=== PATIENT | male | born 1940 | race Caucasian/White ===

== ENCOUNTER → 2019-12-22 10:23 | Outpatient (BNVA) | payer MEDICARE, SELFPAY | PROVIDERS: PCP Internal Medicine; Visit Provider Internal Medicine | DX: I48.20 Chronic atrial fibrillation, unspecified (principal); Z51.81 Encounter for therapeutic drug level monitoring; Z79.01 Long term (current) use of anticoagulants | CPT/HCPCS: 85610 ==

== ENCOUNTER → 2020-01-19 09:47 | Outpatient (BNVA) | payer MEDICARE, SELFPAY | PROVIDERS: PCP Internal Medicine; Visit Provider Internal Medicine | DX: I48.20 Chronic atrial fibrillation, unspecified (principal); Z51.81 Encounter for therapeutic drug level monitoring; Z79.01 Long term (current) use of anticoagulants | CPT/HCPCS: 85610; 99211 ==

== ENCOUNTER → 2020-03-02 10:04 | Outpatient (BNVA) | payer MEDICARE, SELFPAY | PROVIDERS: PCP Internal Medicine; Visit Provider Internal Medicine | DX: I48.20 Chronic atrial fibrillation, unspecified (principal); Z51.81 Encounter for therapeutic drug level monitoring; Z79.01 Long term (current) use of anticoagulants | CPT/HCPCS: 85610; 99211 ==

== ENCOUNTER → 2020-03-30 09:44 | Outpatient (BNVA) | payer MEDICARE, SELFPAY | PROVIDERS: PCP Internal Medicine; Visit Provider Internal Medicine | DX: I48.20 Chronic atrial fibrillation, unspecified (principal); Z51.81 Encounter for therapeutic drug level monitoring; Z79.01 Long term (current) use of anticoagulants | CPT/HCPCS: 85610; 99211 ==

== ENCOUNTER → 2020-04-22 13:48 | Outpatient (REF) | payer MEDICARE, SELFPAY ==
--- NOTE | 2020-04-22 13:52 | CA_ITS ---
Transthoracic Echocardiogram Patient (Last, First, Middle): Cachorro Azar F Gender: Male Date of : 1940 Age: 80 Procedure Date: 04/22/2020 Procedure Type: Transthoracic Echocardiogram Location: OP Height: 180.34 cm Weight: 97.07 kg BSA: 2.17 m2 Heart Rate: bpm BP: 124 / 70 mmHg [employer] Supervisor: Referring MD: Charanjit Aguirre MD Symptoms: I48.20 - Chronic atrial fibrillation, R06.02 SOB Study Quality: Good ECG Rhythm: Atrial Fibrillation Conclusions: - Normal left ventricular size and systolic function. - There is a flattened septum in systole and diastole consistent with right ventricular pressure and volume overload. - Severely increased right ventricular cavity size. There is severely decreased right ventricular systolic function. - The left atrium is severely dilated. The right atrium is severely dilated. - There is mild dilatation of the ascending aorta. Findings Left Ventricle Normal left ventricular size and systolic function. There is mildly increased left ventricular wall thickness. The visually estimated ejection fraction is between 55-60%. There is no evidence of regional wall motion abnormalities. There is a flattened septum in systole and diastole consistent with right ventricular pressure and volume overload. Diastolic function is indeterminate on the basis of available data. Right Ventricle Severely increased right ventricular cavity size. There is severely decreased right ventricular systolic function. Atria The left atrium is severely dilated. The right atrium is severely dilated. Aortic Valve There is a normal trileaflet aortic valve. There is no aortic valve stenosis. There is no aortic valve regurgitation. Mitral Valve Normal mitral valve structure and function. There is mild mitral annular calcification. There is no mitral valve regurgitation. There is no mitral valve stenosis. Pulmonic Valve Normal pulmonic valve structure and function. There is trace pulmonic valve regurgitation. Tricuspid Valve There is severe tricuspid valve regurgitation. Significantly elevated right atrial pressure. Mild pulmonary hypertension is present. Great Vessels There is mild dilatation of the ascending aorta. The visualized portions of the pulmonary artery and branches are normal. Venous The inferior vena cava is dilated and does not collapse with inspiration. Pericardium/Pleural There is no evidence of pericardial effusion. Prior Study Comparison Significant changes compared to prior study dated: 05/06/2018. Severe RV dilation and dysfunction. Severe TR present. Measurements 2D Linear Measurements IVSd: 1.29 0.6-0.9/0.6-1.0 cm LVIDd: 5.05 3.9-5.3/4.2-5.9 cm LVIDd Index: 2.33 2.4-3.2/2.2-3.1 cm/m2 LVIDs: 3.36 2.0-3.6 cm LVPWd: 1.30 0.7-1.1 cm Ao Root: 3.60 2.1-3.5 cm LA Diam: 5.90 2.7-3.8/3.0-4.0 cm LAIDs Index: 2.72 1.5-2.3 cm/m2 LV Mass: 329.84 67-162/88-224 g LV Mass Index: 152.00 43-95/49-115 g/m2 LVOT Diam: 2.20 3.0+(-)1.3 cm Mitral Valve MV Pk E: 1.25 MV Decel Time: 190.00 E'Lateral: 17.30 E'Medial: 14.60 E/E' Med: 8.60 E/E' Lat: 7.20 PHT: 56.00 MVA PHT: 3.93 Decel [place]: 6.56 Aortic Valve AoV Pk Rudi: 1.89 AoV Mn Rudi: 1.07 AoV VTI: 0.44 AoV Pk Grad: 14.00 Aov Mn Grad: 6.00 GERALDO Cont.VTI: 1.97 LVOT LVOT Pk Rudi: 1.06 LVOT Mn Rudi: 0.67 LVOT VTI: 0.23 LVOT Pk Grad: 4.00 LVOT Mn Grad: 2.00 LVOT Diam: 2.20 LVOT Area: 3.80 Diastolic Function MV Pk E: 1.25 E'Medial: 14.60 E/E' Med: 8.60 E' Laterial: 17.30 E/E' Lat: 7.20 Tricuspid Valve TR Pk Rudi: 2.47 TR Pk Grad: 24.00 RVSP: 45.00 Great Vessels Aorta Ao Root-2D: 3.60 2.0-3.7 cm Ao Asc: 4.10 2.1-3.4 cm Pulmonary Valve PV Pk Rudi: 1.11 Peak PV Grad: 5.00 Updated in Other Vendor System with Status of Final [place] MD electronically signed on 04/23/2020 7:14:07 PM with status of Final
== END ==
LOC: HO.CARD 13:48
PROVIDERS: PCP Internal Medicine; Visit Provider Internal Medicine Cardiovascular Disease
DX: I48.20 Chronic atrial fibrillation, unspecified (principal); R06.02 Shortness of breath
CPT/HCPCS: 93306

== ENCOUNTER → 2020-04-28 10:25 | Outpatient (BNVA) | payer MEDICARE, SELFPAY | PROVIDERS: PCP Internal Medicine; Visit Provider Internal Medicine | DX: I48.20 Chronic atrial fibrillation, unspecified (principal); Z51.81 Encounter for therapeutic drug level monitoring; Z79.01 Long term (current) use of anticoagulants | CPT/HCPCS: 85610; 99211 ==

== ENCOUNTER → 2020-05-09 10:14 | Outpatient (BNVA) | payer MEDICARE, SELFPAY | PROVIDERS: PCP Internal Medicine; Visit Provider Internal Medicine Cardiovascular Disease | DX: I48.20 Chronic atrial fibrillation, unspecified (principal); I50.810 Right heart failure, unspecified; I25.10 Atherosclerotic heart disease of native coronary artery without angina pectoris; Z79.01 Long term (current) use of anticoagulants; Z87.891 Personal history of nicotine dependence | CPT/HCPCS: 99212 ==

== ENCOUNTER → 2020-05-31 10:18 | Outpatient (BNVA) | payer MEDICARE, SELFPAY | PROVIDERS: PCP Internal Medicine; Visit Provider Internal Medicine | DX: I48.20 Chronic atrial fibrillation, unspecified (principal); Z51.81 Encounter for therapeutic drug level monitoring; Z79.01 Long term (current) use of anticoagulants | CPT/HCPCS: 85610; 99211 ==

== ENCOUNTER → 2020-06-27 13:23 | Outpatient (BNVA) | payer MEDICARE, SELFPAY | PROVIDERS: PCP Internal Medicine; Visit Provider Internal Medicine Cardiovascular Disease | DX: I50.810 Right heart failure, unspecified (principal); I48.20 Chronic atrial fibrillation, unspecified; I07.1 Rheumatic tricuspid insufficiency | CPT/HCPCS: 99212 ==

== ENCOUNTER → 2020-06-28 10:02 | Outpatient (BNVA) | payer MEDICARE, SELFPAY | PROVIDERS: PCP Internal Medicine; Visit Provider Internal Medicine | DX: I48.20 Chronic atrial fibrillation, unspecified (principal); Z51.81 Encounter for therapeutic drug level monitoring; Z79.01 Long term (current) use of anticoagulants | CPT/HCPCS: 85610; 99211 ==

== ENCOUNTER → 2020-08-02 13:40 | Outpatient (BNVA) | payer MEDICARE, SELFPAY | PROVIDERS: PCP Internal Medicine; Visit Provider Internal Medicine | DX: I48.20 Chronic atrial fibrillation, unspecified (principal); Z51.81 Encounter for therapeutic drug level monitoring; Z79.01 Long term (current) use of anticoagulants | CPT/HCPCS: 85610; 99211 ==

== ENCOUNTER 2020-08-08 13:11 | Outpatient (REF) | payer MEDICARE, SELFPAY ==
[2020-08-08 17:09] LABS: Anion Gap 12 (12-20); Blood Urea Nitrogen 36 mg/dL (9-16); Calcium 9.6 mg/dL (8.4-10.2); Carbon Dioxide 31 mmol/L (22-29); Chloride 104 mmol/L (96-108); Estimated Glomerular Filt Rate 54; Glucose Random 88 mg/dL (60-115); Potassium 4.3 mmol/L (3.3-5.1); Sodium 143 mmol/L (135-145)
[2020-08-08 17:15] LABS: B Type Natriuretic Peptide 65 pg/mL (<100)
[2020-08-08 17:25] LABS: Digoxin 0.3 ng/mL (0.8-2.0)
== END 2020-08-08 13:12 | disposition home or self-care (01) ==
LOC: HO.LAB 13:11
PROVIDERS: Absent Provider Internal Medicine Cardiovascular Disease; PCP Internal Medicine; Visit Provider Internal Medicine
DX: I50.810 Right heart failure, unspecified (principal); I48.20 Chronic atrial fibrillation, unspecified; I25.10 Atherosclerotic heart disease of native coronary artery without angina pectoris; Z79.01 Long term (current) use of anticoagulants; Z79.899 Other long term (current) drug therapy
CPT/HCPCS: 36415; 80048; 80162; 83880; 85610; 99211; 99212

== ENCOUNTER → 2020-08-22 10:17 | Outpatient (BNVA) | payer MEDICARE, SELFPAY | PROVIDERS: PCP Internal Medicine; Visit Provider Internal Medicine | DX: I48.20 Chronic atrial fibrillation, unspecified (principal); Z51.81 Encounter for therapeutic drug level monitoring; Z79.01 Long term (current) use of anticoagulants | CPT/HCPCS: 85610; 99211 ==

== ENCOUNTER 2020-10-28 11:10 | Inpatient (IN) | payer MEDICARE, SELFPAY ==
[2020-10-28] VITALS (15 sets, daily range): BP systolic 92–147; BP diastolic 45–89; PULSE 71–83; RESP 14–20; TEMP 36.3–37.3; O2SAT 95–99; BMI 29.7; BMI 30.3
--- NOTE | ~2020-10-28 | XR_ITS ---
EXAMINATION: XR CHEST CLINICAL INFORMATION: Fluid overload COMPARISON: May 19, 2019 TECHNIQUE: AP portable view of the chest was obtained. FINDINGS: The cardiopericardial silhouette is enlarged. No evidence of pulmonary edema. No pneumothorax or pleural effusion. Status post median sternotomy and CABG. Leads for spinal stimulator seen in place. XR/XR chest 1V IMPRESSION: Cardiomegaly without pulmonary edema.
--- NOTE | ~2020-10-28 | CT_ITS ---
EXAMINATION: CT ABDOMEN AND PELVIS WITHOUT CONTRAST CLINICAL INFORMATION: Anemia. Swelling. Question GI bleed. COMPARISON: CTA of the chest December 2016 TECHNIQUE: Multidetector volumetric imaging was performed from the superior aspect of the liver through the pubic symphysis. Sagittal and coronal reformatted images were obtained on the technologist's workstation. This CT examination was performed using dose optimization techniques as appropriate, variously including the following: *Automated exposure control *Adjustment of mA and/or kV according to patient size (this includes techniques or standardized protocols for targeted exams where dose is matched to indication/reason for exam; i.e. extremities or head) *Use of iterative reconstruction technique DLP: 786 mGy-cm FINDINGS: LUNG BASES: There is a 6 x 7 mm semisolid left lower lobe nodule axial image 13 series 3. This may be increased in size from 3 mm on December 2016 chest scan. The heart is enlarged. LIVER, GALLBLADDER, AND BILIARY TREE: The hepatic veins and intrahepatic IVC are prominent questionable for evidence of right heart compromise. The contour of the liver is slightly irregular and there is prominence of the left lobe and caudate lobe questionable for mild cirrhotic change. The liver is otherwise unremarkable. The gallbladder has been removed. There is no biliary duct dilatation. PANCREAS: Unremarkable. SPLEEN: Unremarkable. ADRENAL GLANDS: Unremarkable. KIDNEYS AND URETERS: There are bilateral low-attenuation renal lesions suggestive of cysts. Largest measures 2.3 x 3 cm exophytic to the lateral lower pole of the right kidney. There is a small right renal stone. BLADDER: The prostate gland is slightly enlarged and protrudes into the base of the bladder. The bladder is otherwise unremarkable. GASTROINTESTINAL TRACT: There is stool throughout the colon. There is diverticulosis of the colon. No evidence of diverticulitis is seen. There is question of a wall thickening of the duodenum. Small and large bowel are otherwise unremarkable. The appendix is unremarkable. ABDOMINAL WALL: There is a small left inguinal hernia containing fat. LYMPH NODES: There are small retroperitoneal lymph nodes. No enlarged lymph nodes are seen. VASCULAR: There is evidence of atherosclerotic disease. No aneurysm is seen. PELVIC VISCERA: The prostate gland is slightly enlarged and protrudes into the base of the bladder. Prostate gland measures 4 x 5 cm. OSSEOUS STRUCTURES: There are degenerative changes of the spine. There is mild 2 mm anterior subluxation of L4 or with respect L5. There are the the spinal canal. The top of the leads are at the T8 vertebral body level. There is a battery in the left buttock. There is a left hip replacement. There are degenerative changes of the right hip joint. CT/CT abdomen pelvis wo con IMPRESSION: Diverticulosis. Stool throughout the colon suggestive of constipation. Question wall thickening of the duodenum. Bilateral renal cysts. Small right renal stone. Enlarged heart. Question evidence of right heart compromise the cirrhotic changes of the liver. 6 x 7 mm left lower lobe groundglass nodule. Chest follow-up recommended.
--- NOTE | ~2020-10-28 | US_ITS ---
EXAMINATION: US VENOUS ULTRASOUND WITH DOPPLER LOWER EXTREMITY, BILATERAL CLINICAL INFORMATION: Bilateral lower extremity swelling. Assess for DVT. COMPARISON: None TECHNIQUE: Ultrasound of the deep veins is performed from the hip to the calf with compression sonography and color and pulse Doppler assessment. Spectral analysis with color-flow imaging is performed. FINDINGS: RIGHT: There is normal venous compression and respiratory variation and augmented flow. The visualized common femoral vein, superficial femoral vein, profunda femoral vein, popliteal vein, and the trifurcation region shows no evidence of deep venous thrombosis. No popliteal fossa cyst. LEFT: There is normal venous compression and respiratory variation and augmented flow. The visualized common femoral vein, superficial femoral vein, profunda femoral vein, popliteal vein, and the trifurcation region shows no evidence of deep venous thrombosis. No popliteal fossa cyst. US/US venous duplex LE BI IMPRESSION: No DVT demonstrated in the bilateral lower extremity.
--- NOTE | 2020-10-28 11:48 | ECG_ITS ---
Test Reason : WEAKNESS Blood Pressure : / mmHG Vent. Rate : 077 BPM Atrial Rate : 078 BPM P-R Int : 000 ms QRS Dur : 106 ms QT Int : 406 ms P-R-T Axes : 000 022 171 degrees QTc Int : 459 ms Atrial fibrillation with premature ventricular or aberrantly conducted complexes Incomplete left bundle branch block ST & T wave abnormality, consider inferolateral ischemia Abnormal ECG When compared with ECG of 19-MAY-2019 11:54, Incomplete left bundle branch block is now Present ST now depressed in Anterolateral leads T wave inversion now evident in Lateral leads Referred By: Mesfin Almeida Electronically Signed By:VIN RILEY
--- NOTE | 2020-10-28 11:53 | ED_ITS ---
HPI - General Adult General Chief complaint: Weakness Stated complaint: weight gain Time Seen by Provider: 10/28/20 11:14 Source: patient Mode of arrival: ambulatory Limitations: no limitations History of Present Illness HPI narrative: Patient presents to ED for weight gain. Patient states increased swelling in bilateral legs and also swelling of the abdomen. Patient's history of heart failure. Patient denies any chest pain, shortness of breath, or abdominal pain. Patient states no fever or chills. Patient already on diuretics. Patient states gain a lb since yesterday. Patient states status post left hip surgery 3 weeks ago. Patient also states weakness Related Data Home Medications Medication Instructions Recorded Confirmed digoxin 125 mcg (0.125 mg) tablet 125 mcg PO BEDTIME 04/28/20 10/28/20 acetaminophen 500 mg tablet 500 mg PO Q8H PRN 10/28/20 10/28/20 cephalexin 500 mg capsule 1 cap PO Q8H 10/28/20 10/28/20 fentanyl 50 mcg/hr transdermal 1 patch TOPICAL Q3D 10/28/20 10/28/20 patch oxycodone 5 mg tablet 5 mg PO Q4H PRN 10/28/20 10/28/20 pregabalin 25 mg capsule 1 cap PO TID 10/28/20 10/28/20 tamsulosin 0.4 mg capsule 1 cap PO BEDTIME 10/28/20 10/28/20 warfarin 1 mg tablet 1 tab PO DAILY 10/28/20 10/28/20 Previous Rx's Medication Instructions Recorded warfarin 5 mg tablet 5 mg PO DAILY #90 tab 12/22/19 isosorbide mononitrate 30 mg 30 mg PO DAILY 90 Days #90 tab 03/03/20 tablet,extended release 24 hr metoprolol succinate 25 mg 25 mg PO DAILY #90 tab 05/30/20 tablet,extended release 24 hr torsemide 20 mg tablet 60 mg PO BID 90 Days #540 tab 07/20/20 metolazone 2.5 mg tablet 2.5 mg PO Q OTHER DAY PRN #20 tab 08/08/20 Allergies Allergy/AdvReac Type Severity Reaction Status Date / Time gabapentin [GABAPENTIN] Allergy Unknown UNKNOWN, Verified 08/08/20 13:35 heart palipitations [place]-Sso-Nqm Reductase Allergy Unknown MUSCLE Verified 08/08/20 13:35 Inhibitor /JOINT PAIN [[id number] REDUCTASE INHIBITOR] Review of Systems Review of Systems: Yes all other systems are reviewed and are negative Constitutional: Constitutional: Reports as per HPI and Reports no additional constitutional complaints Eyes: Eyes: Reports as per HPI and Reports no additional eye complaints ENT: Reports system reviewed and no additional complaints, except as documented and Reports as per HPI Cardiovascular: Cardiovascular: Reports as per HPI and Reports no additional cardiovascular complaints Respiratory: Respiratory: Reports as per HPI and Reports no additional respir atory complaints Gastrointestinal: Gastrointestinal: Reports as per HPI and Reports no additional gastrointestinal complaints Comments: Abdominal swelling Musculoskeletal: Musculoskeletal: Reports no additional musculoskeletal complaints and Reports as per HPI Comments: Increased swelling of bilateral l ower extremities. Neurologic: Reports system reviewed and no additional complaints, except as documented and Reports as per HPI Psychiatric: Psychiatric: Reports no additional psychiatric complaints and R eports as per HPI Endocrine: Endocrine: Reports no additional endocrine complaints and Reports as per HPI [facility] Past Medical History Medical History CAD (coronary artery disease) Chronic a-fib Congestive heart failure Enlarged RV (right ventricle) RVF (right ventricular failure) Thoracic aortic aneurysm Tricuspid regurgitation Surgical History History of radiofrequency ablation (RFA) procedure for cardiac arrhythmia History of total hip arthroplasty Hx of cardiac cath Hx of heart bypass surgery Family History Family History Father CVD (cardiovascular disease) Mother CVD (cardiovascular disease) Social History Social History Advance Directives: No Advance Directives Information Provided: Yes Physical Exam Vital Signs: Vital Signs: Last Vital Signs Temp 98.0 F 10/28/20 16:00 Pulse 80 10/28/20 16:00 Resp 20 10/28/20 16:00 BP 130/68 10/28/20 16:00 Pulse Ox 98 10/28/20 16:00 Body Mass Index 29.7 Const: General: cooperative, healthy appearing, comfortable, no acute distress, well developed, alert, awake and Physically active; No acute distress Orientation/consciousness: patient oriented x3 HENMT: Head: Yes normal to inspection, Yes No palpable skull fracture present, Yes normocephalic, Yes atraumatic and No abrasion Eyes: General: appearance normal, both eyes and all related structures Neck: Neck: Yes normal visual inspection, Yes full ROM, Yes no lymphadenopathy, Yes no meningeal signs, Yes trachea midline, Yes supple and No tender Resp: Effort & Inspection: normal respiratory effort and able to speak in complete sentences Auscultation: clear to auscultation bilaterally Cardio: Jugular venous distension: no JVD Heart sounds: S1 normal heart sound present and S2 normal heart sound present GI: Inspection: Yes normal to inspection, No abdominal wall ecchymosis and Yes distended Palpation (GI): Soft to palpation, not firm, nontender, no guarding and not rigid : General: Yes Bimanual renal exam normal bilaterally, No bladder normal to inspection, No CVA tenderness and Yes no CVA tenderness Back/Spine/Pelvis: Back: no CVA tenderness, No CVA tenderness and No back tenderness Skin: General skin exam: no rashes or lesions noted and elasticity normal Neuro: General: patient oriented x3, gait normal, no meningeal signs and CN's II-XI intact bilaterally Cranial nerves: Yes CN's II-XII intact bilaterally Extrem: Other: Bilateral lower extremity swelling with pitting edema. Negative for any calf tenderness. Left hip incision wound healing and negative for any erythema, pus discharge, foul odor, or tenderness. Psych: Appearance: grossly normal, well kempt and not disheveled Course Course Course Narrative: History physical exam indicate anasarca. Patient not having any chest pain or shortness of breath will do cardiac evaluation including BMP and chest x-ray with EKG. Probably patient will have imaging of abdomen. Reevaluation(s) Reevaluation #1: Patient is anemic. Patient complains of fatigue. Rectal exam done and occult stool ordered. Type and screen ordered. Discussed case with hospitalist and recommend abdominal CT scan to see if the swelling due to pooling of blood. Two bags of blood ordered. Patient agreeable to consent for blood. Patient received blood transfusion in the past. Patient states history of multiple episodes of anemia and has had multiple evaluations by medical providers but did not know why. Time: 12:42 Reevaluation #2: CT scan of CS abdomen with IV contrast could not be done due to patient having acute kidney injury with hypokalemia. Patient will have dry CT. Protonix ordered. Spoke with Dr. Colon of Gastroenterology and she agrees with plan for patient to receive blood and Protonix. She states she will schedule patient for EGD in the morning. She has also agree with plan for Dr. Mendoza to have patient received vitamin K and FFP with INR of 2.5 with bleeding. Time: 13:55 Medical Decision Making MDM Narrative Medical decision making narrative: Symptomatic anemia. Rule out GI bleed. Anasarca Lab Data Result diagrams: 10/28/20 12:09 10/28/20 12:09 Labs: Lab Results 10/28/20 10/28/20 10/28/20 Range/Units 12:09 12:09 12:09 WBC 7.6 (4.8-10.8) X10*3/uL RBC 2.35 L (4.60-5.80) X10*6/uL Hgb 6.0 L* (14.0-18.0) g/dl Hct 19.5 L* (42-52) % MCV 83.0 (80-98) fL MCH 25.5 L (27.0-33.0) pg MCHC 30.8 L (31.0-36.0) g/dl RDW 15.7 (11.0-16.0) % Plt Count 198 (160-400) X10*3/uL MPV 10.2 (9.4-12.4) fL Immature Gran % (Auto) 1.0 H (0.0-0.4) % Neut % (Auto) 66.3 (45-73) % Lymph % (Auto) 9.7 L (20-40) % [place] % (Auto) 12.7 H (2-11) % Eos % (Auto) 10.2 H (0-4) % Baso % (Auto) 0.1 (0-2) % Lymph # (Auto) 0.7 L (1.2-4.9) X10*3/uL [place] # (Auto) 1.0 (0.1-1.2) X10*3/uL Eos # (Auto) 0.8 H (0.0-0.4) X10*3/uL Baso # (Auto) 0.0 (0.0-0.2) X10*3/uL Abs Immat Gran (auto) 0.08 H (0.00-0.03) X10*3/uL Absolute Neuts (auto) 5.1 (2.0-8.3) X10*3/uL Absolute Nucleated RBC 0.000 (0.0-0.012) X10*3/uL Nucleated RBC % (auto) 0.0 (0.0-0.2) /100WBC Smear Path Review SEE NOTE PT 28.6 H (9.9-13.0) SEC INR 2.5 H (0.9-1.1) APTT 37.2 (24.1-38.0) SEC Sodium 133 L (135-145) mmol/L Potassium 2.5 L* D (3.3-5.1) mmol/L Chloride 87 L (96-108) mmol/L Carbon Dioxide 34 H (22-29) mmol/L Anion Gap 15 (12-20) BUN 108 H* D (9-16) mg/dL Creatinine 3.03 H (0.5-1.4) mg/dL Estim Creat Clear Calc 24.5 Estimated GFR 20 Random Glucose 172 H D (60-115) mg/dL Calcium 8.4 D (8.4-10.2) mg/dL Total Bilirubin 0.5 (0.0-1.0) mg/dL Direct Bilirubin 0.2 (0.0-0.5) mg/dL AST 24 (5-37) U/L ALT 17 (0-40) U/L Alkaline Phosphatase 74 (39-117) U/L Troponin I High Sens (<3.5-35.0) ng/L B-Natriuretic Peptide (<100) pg/mL Total Protein 5.5 L (6.5-8.0) g/dL Albumin 3.7 (3.5-5.0) g/dL Stool Occult Blood (NEGATIVE) Blood Type Antibody Screen Crossmatch 10/28/20 10/28/20 10/28/20 Range/Units 12:09 12:40 12:50 WBC (4.8-10.8) X10*3/uL RBC (4.60-5.80) X10*6/uL Hgb (14.0-18.0) g/dl Hct (42-52) % MCV (80-98) fL MCH (27.0-33.0) pg MCHC (31.0-36.0) g/dl RDW (11.0-16.0) % Plt Count (160-400) X10*3/uL MPV (9.4-12.4) fL Immature Gran % (Auto) (0.0-0.4) % Neut % (Auto) (45-73) % Lymph % (Auto) (20-40) % [place] % (Auto) (2-11) % Eos % (Auto) (0-4) % Baso % (Auto) (0-2) % Lymph # (Auto) (1.2-4.9) X10*3/uL [place] # (Auto) (0.1-1.2) X10*3/uL Eos # (Auto) (0.0-0.4) X10*3/uL Baso # (Auto) (0.0-0.2) X10*3/uL Abs Immat Gran (auto) (0.00-0.03) X10*3/uL Absolute Neuts (auto) (2.0-8.3) X10*3/uL Absolute Nucleated RBC (0.0-0.012) X10*3/uL Nucleated RBC % (auto) (0.0-0.2) /100WBC Smear Path Review PT (9.9-13.0) SEC INR (0.9-1.1) APTT (24.1-38.0) SEC Sodium (135-145) mmol/L Potassium (3.3-5.1) mmol/L Chloride (96-108) mmol/L Carbon Dioxide (22-29) mmol/L Anion Gap (12-20) BUN (9-16) mg/dL Creatinine (0.5-1.4) mg/dL Estim Creat Clear Calc Estimated GFR Random Glucose (60-115) mg/dL Calcium (8.4-10.2) mg/dL Total Bilirubin (0.0-1.0) mg/dL Direct Bilirubin (0.0-0.5) mg/dL AST (5-37) U/L ALT (0-40) U/L Alkaline Phosphatase (39-117) U/L Troponin I High Sens 13.4 (<3.5-35.0) ng/L B-Natriuretic Peptide 91 (<100) pg/mL Total Protein (6.5-8.0) g/dL Albumin (3.5-5.0) g/dL Stool Occult Blood POSITIVE (NEGATIVE) Blood Type A Positive Antibody Screen NEGATIVE Crossmatch See Detail ECG Data Interpretation: Atrial fibrillation. Ventricular rate 77. QRS 106. QTC 459. Negative STEMI Discharge Plan Discharge Clinical Impression: Symptomatic anemia, Anasarca Patient Disposition: Admitted As Inpatient
[2020-10-28 12:16] LABS: MANUAL DIFF FLAG NO
[2020-10-28 12:18] LABS: Basophils Percent Auto 0.1 % (0-2); Eosinophils Absolute Auto 0.8 X10*3/uL (0.0-0.4); Eosinophils Percent Auto 10.2 % (0-4); Imm Gran Abs Auto 0.08 X10*3/uL (0.00-0.03); Lymphocytes Absolute Auto 0.7 X10*3/uL (1.2-4.9); Lymphocytes Percent Auto 9.7 % (20-40); Mean Corpuscular HGB Conc 30.8 g/dl (31.0-36.0); Mean Corpuscular Hemoglobin 25.5 pg (27.0-33.0); Mean Platelet Volume 10.2 fL (9.4-12.4); Monocytes Percent Auto 12.7 % (2-11); Neutrophils Absolute Auto 5.1 X10*3/uL (2.0-8.3); Neutrophils Percent Auto 66.3 % (45-73); Platelet Count 198 X10*3/uL (160-400); Red Blood Count 2.35 X10*6/uL (4.60-5.80); Red Cell Distribution Width 15.7 % (11.0-16.0); White Blood Count 7.6 X10*3/uL (4.8-10.8)
[2020-10-28 12:27] LABS: Hematocrit 19.5 % (42-52); INTERNATIONAL NORM RATIO 2.5 (0.9-1.1); Prothrombin Time 28.6 SEC (9.9-13.0)
[2020-10-28 12:30] LABS: Partial Thromboplastin Time 37.2 SEC (24.1-38.0)
[2020-10-28 12:43] LABS: B Type Natriuretic Peptide 91 pg/mL (<100); Troponin-I High Sensitivity 13.4 ng/L (<3.5-35.0)
[2020-10-28 12:51] LABS: OBS Int Ctl Valid YES; OBS1 POSITIVE (NEGATIVE)
[2020-10-28 12:58] LABS: Alanine Aminotransferase 17 U/L (0-40); Albumin Level 3.7 g/dL (3.5-5.0); Alkaline Phosphatase 74 U/L (39-117); Anion Gap 15 (12-20); Aspartate Amino Transferase 24 U/L (5-37); Bilirubin Direct 0.2 mg/dL (0.0-0.5); Bilirubin Total 0.5 mg/dL (0.0-1.0); Blood Urea Nitrogen 108 mg/dL (9-16); Calcium 8.4 mg/dL (8.4-10.2); Carbon Dioxide 34 mmol/L (22-29); Chloride 87 mmol/L (96-108); Creatinine Clr Calc Pharmacy 24.5; Estimated Glomerular Filt Rate 20; Glucose Random 172 mg/dL (60-115); Potassium 2.5 mmol/L (3.3-5.1); Sodium 133 mmol/L (135-145); Total Protein 5.5 g/dL (6.5-8.0)
--- NOTE | 2020-10-28 13:53 | PM.GICN ---
History of Present Illness Data of Consult Service Date: 10/28/20 Primary Care Provider: Charanjit Aguirre MD HPI Reason for consult: Gi Bleeding, severe anemia 80 YM with AFib on warfarin, right ventricular failure with tricuspid regurgitation and thoracic aortic aneurysm, CAD?presented to [facility] today with weight gain He has been diagnosed with lung cancer and is undergoing immunotherapy at [facility]: HPI narrative: Patient presents to ED for weight gain.? Patient states increased swelling in bilateral legs and also swelling of the abdomen.? Patient's history of heart failure.? Patient denies any chest pain, shortness of breath, or abdominal pain.? Patient states no fever or chills.? Patient already on diuretics.? Patient states gain a lb since yesterday.? Patient states status post left hip surgery 3 weeks ago. Patient denies symptoms of heartburn, nausea, vomiting, change in appetite, diarrhea, black stools or rectal bleeding. He complains of intermittent dysphagia to solid food which resolves with drinking fluid and denies episodes of food impaction. Admits to weight gain due to edema. Pt denies recent change in bowel habits - has intermittent constipation. Patient admits to sleep apnea and uses a CPAP machine Denies problems with anesthesia in the past. Pt has been on oysterman anticoagulation with warfarin for chronic AF. 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 Patient denies known family history of colon cancer or other GI malignancies. A daughter had colon polyps and had surgery for Wilm's tumor PAST EGD/COLONOSCOPY: Patient gives a history of recurrent anemia every 2 yrs since the past 7-8 yrs and has been evaluated by multiple EGDs and Colonoscopies He had EGD, Colonoscopy and capsule endoscopy by Dr. Guerrero at [facility] 1.5 years ago - records have been requested Per pt EGD was normal, 9 polyps were removed during colonoscopy and he does not recall being informed about capsule endoscopy results. Repeat colonoscopy was advised in 1 year. ? a blood vessel was cauterized in the stomach during a past EGD Review of Systems Constitutional: Constitutional: Denies fever(s), Denies headache(s), Reports weakness and Denies weight loss Eyes: Eyes: Denies eye discharge and Denies irritation ENT: Reports Normal hearing present, Denies dysphagia, Denies dizziness and Denies headache(s) Cardiovascular: Cardiovascular: Denies chest pain, Reports leg edema and Denies dyspnea on exertion Respiratory: Respiratory: Denies cough and Denies dyspnea on exertion Gastrointestinal: Gastrointestinal: Denies abdominal pain, Denies change in bowel habits, Denies dysphagia and Denies heartburn Genitourinary: Genitourinary: Denies dysuria Musculoskeletal: Musculoskeletal: Denies back pain and Denies arthralgias Integumentary/Breasts: Skin/Breast: Denies pruritus, Denies rash and Denies jaundice Neurologic: Reports Normal hearing present, Denies Abnormal speech present, Denies dizziness, Denies headache(s), Denies seizure-like activity and Reports weakness Psychiatric: Psychiatric: Denies anxiety, Denies depression and Denies panic attacks Endocrine: Endocrine: Denies cold intolerance, Denies flushing and Denies heat intolerance Hematologic/Lymphatic: Hematologic/Lymphatic: Denies easy bleeding and Denies easy bruising PMFSH Past Medical History Medical History CAD (coronary artery disease) Chronic a-fib Congestive heart failure Enlarged RV (right ventricle) RVF (right ventricular failure) Thoracic aortic aneurysm Tricuspid regurgitation Family History Family History Father CVD (cardiovascular disease) Mother CVD (cardiovascular disease) Surgical History Surgical History History of radiofrequency ablation (RFA) procedure for cardiac arrhythmia History of total hip arthroplasty Hx of cardiac cath Hx of heart bypass surgery Social History Social History Household Members: Spouse Housing: House Do you presently have visiting nurse or other home services: Yes Patient Tobacco Use Status: Former Tobacco user Quit Date: 25 yrs ago Tobacco use type: Cigarette Smoked in Last 30 Days: No e-Cigarette/Vaping Use: Former Use Patient Interested in Nicotine Replacement: No Use of substances other than those prescribed or required for medical reasons: No Currently Displaying Signs/Symptoms of Drug Intoxication Withdrawal: No Have you been hit, kicked, punched, or otherwise hurt by someone within the past year? If so, by whom?: No Do you feel safe in your current relationship?: Yes Is there a partner from a previous relationship who is making you feel unsafe now?: No Are you made to feel afraid or neglected: No Advance Directives: No Advance Directives Information Provided: Yes Do you have thoughts of harming others: None Do you have a plan to hurt others: No Plan Recently lost weight without trying: No Nutrition Risks: No Nutritional Risk Poor oral hygiene: No Meds Allergies Allergy/AdvReac Type Severity Reaction Status Date / Time gabapentin [GABAPENTIN] Allergy Unknown UNKNOWN, Verified 08/08/20 13:35 heart palipitations Vzflpyh-Qdp-Ree Reductase Allergy Unknown MUSCLE Verified 08/08/20 13:35 Inhibitor /JOINT PAIN [[id number] REDUCTASE INHIBITOR] Active Medications: Current Medications Generic Name Dose Route Start Last Admin Trade Name Freq PRN Reason Stop Dose Admin Potassium Chloride 10 meq in 100 mls @ 100 mls/hr 10/28/20 13:09 IV 10/28/20 14:08 Q1H STA Sodium Chloride 1,000 mls @ 999 mls/hr 10/28/20 13:29 Ns IV 10/28/20 14:29 .Q1H1M STA Phytonadione 10 mg/ Sodium 51 mls @ 51 mls/hr 10/28/20 13:44 Chloride IV 10/28/20 14:43 ONCE ONE Home Medications Medication Instructions Recorded Confirmed Last Taken Type digoxin 125 mcg (0.125 mg) tablet 125 mcg PO BEDTIME 04/28/20 10/28/20 10/27/20 History acetaminophen 500 mg tablet 500 mg PO Q8H PRN 10/28/20 10/28/20 10/27/20 History cephalexin 500 mg capsule 1 cap PO Q8H 10/28/20 10/28/20 10/27/20 History fentanyl 50 mcg/hr transdermal 1 patch TOPICAL Q3D 10/28/20 10/28/20 10/26/20 History patch oxycodone 5 mg tablet 5 mg PO Q4H PRN 10/28/20 10/28/20 10/28/20 History pregabalin 25 mg capsule 1 cap PO TID 10/28/20 10/28/20 10/27/20 History tamsulosin 0.4 mg capsule 1 cap PO BEDTIME 10/28/20 10/28/20 10/27/20 History warfarin 1 mg tablet 1 tab PO DAILY 10/28/20 10/28/20 10/27/20 History Physical Exam Vital Signs: Vital Signs: Last Vital Signs Temp 98.2 F 10/28/20 12:23 Pulse 83 10/28/20 12:23 Resp 14 10/28/20 12:23 BP 92/45 L 10/28/20 12:23 Pulse Ox 95 10/28/20 12:23 Body Mass Index 29.7 Const: General: no acute distress and ill appearing Nutritional Appearance: average body habitus and obese Orientation/consciousness: patient oriented x3 Limitations: no limitations HENMT: Head: Yes normal to inspection Ears: hearing grossly normal bilaterally Mouth: Normal oral and palatal mucosa present Eyes: Sclerae: sclerae normal Pupils: Equal, round and reactive pupils present Neck: Neck: Yes normal visual inspection Chest: Chest palpation & inspection: normal inspection of the chest Resp: Effort & Inspection: normal respiratory effort Auscultation: clear to auscultation bilaterally Cardio: Palpation: normal PMI Rate: Other Rhythm: regular rhythm and other (Irregularly irregular rhythm) Heart sounds: S1 normal heart sound present, S2 normal heart sound present and Murmur heart sound present (3/6 systolic murmur at LSB) GI: Inspection: Yes distended Palpation (GI): Soft to palpation, nontender and No hepatosplenomegaly present Auscultation: normal bowel sounds Rectal Exam - Male: Yes deferred Skin: General skin exam: no rashes or lesions noted Neuro: General: patient oriented x3, gait normal and moves all extremities Cranial nerves: Yes Equal, round and reactive pupils present and Yes Normal hearing present Speech: No Abnormal speech present Extrem: General: Yes edema (1-2 + pitting edema) Psych: Appearance: grossly normal Mental Status: mental status grossly normal Results Labs CBC & Chem 7: 10/29/20 06:06 10/29/20 06:06 Labs: Short CBC 10/28/20 Range/Units 12:09 WBC 7.6 (4.8-10.8) X10*3/uL Hgb 6.0 L* (14.0-18.0) g/dl Hct 19.5 L* (42-52) % Plt Count 198 (160-400) X10*3/uL BMP 10/28/20 12:09 Sodium 133 L Potassium 2.5 L* D Chloride 87 L Carbon Dioxide 34 H BUN 108 H* D Creatinine 3.03 H Calcium 8.4 D Liver Function 10/28/20 Range/Units 12:09 Total Bilirubin 0.5 (0.0-1.0) mg/dL Direct Bilirubin 0.2 (0.0-0.5) mg/dL AST 24 (5-37) U/L ALT 17 (0-40) U/L Alkaline Phosphatase 74 (39-117) U/L Albumin 3.7 (3.5-5.0) g/dL Assessment and Plan (1) Acute blood loss anemia: Status: Acute (2) Chronic a-fib: Status: Acute 80 YM with AFib on warfarin, right ventricular failure with tricuspid regurgitation and thoracic aortic aneurysm, CAD?admitted with worsening edema and noted to have severe anemia and heme-positive stools. He has been diagnosed with lung cancer and is undergoing immunotherapy at [facility].? Pt reports since the past 7-8 yrs, he develops severe anemia every 2-3 yrs. He has had past endoscopic evaluation with EGD, colonoscopy and Capsule endoscopy - last 1.5 yrs ago. Per patient EGD was normal and 9 polyps were removed during colonoscopy - records have been requested from [facility] RECOMMENDATIONS: 1. Monitor H & H and INR post transfusion. 2. Cardiology clearance 3. Further evaluation with EGD and Colonoscopy - can schedule on Saturday (10/31/20) after cardiology clearance. ADDENDUM: Per Cardiology Consult: I do not think he is in any condition to undergo endoscopy right now.? I think we have to optimize him. Coumadin can be held for now. Please avoid further vitamin K in him. Hold off scheduling any endoscopic procedures until he is more stable from Cardiac standpoint. Procedures Date of Service Date of Service: 10/28/20
[2020-10-28] MEDS: Potassium Chloride Packet 20 MEQ PACKET 40 MEQ PO (14:07)
[2020-10-28] MEDS: Potassium Chloride/H20 10 MEQ/100 ML PIGGYBACK 100 MEQ IV ×4 (14:07→21:06)
[2020-10-28] MEDS: Pantoprazole Sodium 40 MG/10 ML VIAL 80 MG IVPUSH (14:07)
[2020-10-28] MEDS: 0.9 % Sodium Chloride 1,000 ML 999 ML IV (14:09)
--- NOTE | 2020-10-28 15:09 | P.HPHOSP_ITS ---
History of Present Illness Date of Service: 10/28/20 Chief Complaint: Weakness, dyspnea on exertion A 80 years old male with PMH of AFib on warfarin, CHF, tricuspid regurg, CAD among others who presented to the hospital with a complaint of 4 days increased lethargy and dyspnea on exertion. The patient reported he had hip surgery 3 weeks ago and he recovered pretty well at home but noticed increase in his bilateral lower extremity swelling and weight gain. His CHF medications were adjusted with increase the dose of torsemide and adding metolazone daily basis. The patient reports losing some weight but he noticed decreased urine output afterward and for the last 2 days he did not pass almost any urine. He reports taking his warfarin as prescribed and never noticing any bleeding per rectum. He mention that he had similar episode 3 times before and had upper and lower endoscopies with no clear ulcers or source of bleeding identified. In the emergency his hemoglobin was found to be around 6 from baseline of 12 along with acute kidney injury with creatinine of 3 from normal baseline. Images negative for any acute finding or obstruction Admitted for further evaluation and treatment. Review of Systems Review of Systems: No fever, chills but reports generalized weakness No chest pain, but has some exertion and palpitation Dyspnea on exertion No abdominal pain, nausea or vomiting No urinary symptoms No any rash or wounds PMFSH Medical History CAD (coronary artery disease) Chronic a-fib Congestive heart failure Enlarged RV (right ventricle) RVF (right ventricular failure) Thoracic aortic aneurysm Tricuspid regurgitation Family History Father CVD (cardiovascular disease) Mother CVD (cardiovascular disease) Surgical History History of radiofrequency ablation (RFA) procedure for cardiac arrhythmia History of total hip arthroplasty Hx of cardiac cath Hx of heart bypass surgery Social History Advance Directives: No Advance Directives Information Provided: Yes Meds Allergies Allergy/AdvReac Type Severity Reaction Status Date / Time gabapentin [GABAPENTIN] Allergy Unknown UNKNOWN, Verified 08/08/20 13:35 heart palipitations Zmqygpz-Pjc-Ook Reductase Allergy Unknown MUSCLE Verified 08/08/20 13:35 Inhibitor /JOINT PAIN [[id number] REDUCTASE INHIBITOR] Active Medications: Current Medications Generic Name Dose Route Start Last Admin Trade Name Gagandeep PRN Reason Stop Dose Admin Acetaminophen 650 mg 10/28/20 14:59 Acetaminophen 325 Mg Tablet PO Q6H PRN Pain, Mild (Pain Scale 1-3) Potassium Chloride 10 meq in 100 mls @ 100 mls/hr 10/28/20 15:30 IV 10/28/20 18:29 Q1H [facility] Morphine Sulfate 2 mg 10/28/20 14:59 Morphine Sulfate 4 Mg/Ml Cartridge IVPUSH Q4H PRN Pain, Severe (Pain Scale 7-10) Protocol Ondansetron HCl 4 mg 10/28/20 14:59 Ondansetron Hcl 4 Mg/2 Ml Vial IVPUSH Q8H PRN Nausea and Vomiting Pharmacy Consult 1 each 10/28/20 14:55 Consult Rx Perform Med Rec MISCELLANE ONCE PRN Consult order Pharmacy Consult 1 each 10/28/20 15:07 Consult Rx Perform Med Rec MISCELLANE ONCE PRN Consult order Sodium Chloride 3 ml 10/28/20 16:00 0.9 % Sodium Chloride Flush 3 Ml Syringe [facility] Home Medications Medication Instructions Recorded Confirmed Last Taken Type digoxin 125 mcg (0.125 mg) tablet 125 mcg PO BEDTIME 04/28/20 10/28/20 10/27/20 History acetaminophen 500 mg tablet 500 mg PO Q8H PRN 10/28/20 10/28/20 10/27/20 History cephalexin 500 mg capsule 1 cap PO Q8H 10/28/20 10/28/20 10/27/20 History fentanyl 50 mcg/hr transdermal 1 patch TOPICAL Q3D 10/28/20 10/28/20 10/26/20 History patch oxycodone 5 mg tablet 5 mg PO Q4H PRN 10/28/20 10/28/20 10/28/20 History pregabalin 25 mg capsule 1 cap PO TID 10/28/20 10/28/20 10/27/20 History tamsulosin 0.4 mg capsule 1 cap PO BEDTIME 10/28/20 10/28/20 10/27/20 History warfarin 1 mg tablet 1 tab PO DAILY 10/28/20 10/28/20 10/27/20 History Physical Exam Vital Signs and Narrative: Vital Signs: Last Vital Signs Temp 98 F 10/28/20 15:07 Pulse 80 10/28/20 15:07 Resp 17 10/28/20 15:07 BP 122/46 L 10/28/20 15:07 Pulse Ox 95 10/28/20 12:23 Body Mass Index 29.7 Const: Other: Constitutional : Alert, oriented, not in distress Neck : Normal inspection, Supple Cardiovascular : Irregular irregular, S1 S2, systolic murmur, blood stool bilateral lower extremity edema Respiratory : Fair bilateral air entry, no crackles, wheezes or rhonchi Gastrointestinal: soft, lax, Normal bowel sounds, Non tender Skin : Warm, Dry Neurological : Alert & oriented x3, No focal deficit Results Labs CBC and Chem 7: 10/28/20 12:09 10/28/20 12:09 Labs: Laboratory Results - last 24 hr 10/28/20 10/28/20 10/28/20 12:09 12:09 12:09 MCV 83.0 MCH 25.5 L MCHC 30.8 L RDW 15.7 Plt Count 198 MPV 10.2 Immature Gran % (Auto) 1.0 H Neut % (Auto) 66.3 Lymph % (Auto) 9.7 L [place] % (Auto) 12.7 H Eos % (Auto) 10.2 H Baso % (Auto) 0.1 Lymph # (Auto) 0.7 L [place] # (Auto) 1.0 Eos # (Auto) 0.8 H Baso # (Auto) 0.0 Abs Immat Gran (auto) 0.08 H Absolute Neuts (auto) 5.1 Absolute Nucleated RBC 0.000 Nucleated RBC % (auto) 0.0 Smear Path Review SEE NOTE PT 28.6 H INR 2.5 H APTT 37.2 Anion Gap 15 Estim Creat Clear Calc 24.5 Estimated GFR 20 Random Glucose 172 H D Calcium 8.4 D Total Bilirubin 0.5 Direct Bilirubin 0.2 AST 24 ALT 17 Alkaline Phosphatase 74 Troponin I High Sens B-Natriuretic Peptide Total Protein 5.5 L Albumin 3.7 Stool Occult Blood Blood Type Antibody Screen Crossmatch 10/28/20 10/28/20 10/28/20 12:09 12:40 12:50 MCV MCH MCHC RDW Plt Count MPV Immature Gran % (Auto) Neut % (Auto) Lymph % (Auto) [place] % (Auto) Eos % (Auto) Baso % (Auto) Lymph # (Auto) [place] # (Auto) Eos # (Auto) Baso # (Auto) Abs Immat Gran (auto) Absolute Neuts (auto) Absolute Nucleated RBC Nucleated RBC % (auto) Smear Path Review PT INR APTT Anion Gap Estim Creat Clear Calc Estimated GFR Random Glucose Calcium Total Bilirubin Direct Bilirubin AST ALT Alkaline Phosphatase Troponin I High Sens 13.4 B-Natriuretic Peptide 91 Total Protein Albumin Stool Occult Blood POSITIVE Blood Type A Positive Antibody Screen NEGATIVE Crossmatch See Detail Imaging Radiologist's Impressions: Impressions Chest X-Ray 10/28/20 11:48 IMPRESSION: Cardiomegaly without pulmonary edema. Venous Duplex 10/28/20 12:00 IMPRESSION: No DVT demonstrated in the bilateral lower extremity. Abdomen/Pelvis CT 10/28/20 12:59 IMPRESSION: Diverticulosis. Stool throughout the colon suggestive of constipation. Question wall thickening of the duodenum. Bilateral renal cysts. Small right renal stone. Enlarged heart. Question evidence of right heart compromise the cirrhotic changes of the liver. 6 x 7 mm left lower lobe groundglass nodule. Chest follow-up recommended. Assessment and Plan (1) Current use of anticoagulant therapy: Status: Acute (2) Symptomatic anemia: Status: Acute (3) Acute blood loss anemia: Status: Acute (4) Acute kidney injury: Status: Acute A 80 years old male with PMH of AFib on warfarin, CHF, tricuspid regurg, CAD among others who presented to the hospital with a complaint of 4 days increased lethargy and dyspnea on exertion. Symptomatic anemia 2/2 acute blood loss +ve Occult blood Hb dropped to 6 from 12 To transfuse 2 units PRBCs and FFP GI consult with plan for EGD tomorrow Can not use contrast images with acute kidney injury Acute kidney injury Hypokalemia Likely secondary to medications, dehydration Seems ATN picture to do urine studies Hold on IVF for now, to give potassium supplement To get Nephrology evaluation Hold nephrotoxic medications AFib On warfarin with INR 2.5 Received vitamin K and FFP to reverse id Continue metoprolol To monitor DVT PPX SCDs Quality Stroke Does the patient have a stroke diagnosis?: No VTE Prior VTE?: No VTE Risk Level:: Medical - moderate - high VTE Device Contraindication: N/A - Device Ordered VTE Drug Contraindication: Treatment Not Indicated
--- NOTE | 2020-10-28 15:22 | PHA.MEDREC ---
Pharmacy Consult ? Medication Reconciliation Pharmacy has completed the medication reconciliation. Patient warfarin dose went from 5 to 6 mg last week. Patient metalazone went from every other day, to once a day with morning torsemide dose to twice a day with morning and evening torsemide dose. Valsartan D/C due to low blood pressure.
[2020-10-28 16:21] LABS: Glucose Urine UA NEG (NEG); Leukocyte Esterase Urine NEG (NEG); Nitrite Urine NEG (NEG); Specific Gravity - Urine <= 1.005 (1.005-1.025); Urine Blood NEG (NEG); Urine Ketones NEG (NEG); Urine Protein NEG (NEG-TRACE)
[2020-10-28] MEDS: Phytonadione (Vit K1) 10 MG in 0.9 % Sodium Chloride 50 ML 51 MG IV (16:23)
[2020-10-28 16:25] LABS: Appearance Urine CLEAR; Color Urine YELLOW
[2020-10-28 16:42] LABS: Creatinine Urine 55.24 mg/dL
[2020-10-28 16:48] LABS: COVID-19 Test Negative (Negative); IDNOW Serial# 08D9AD1C
--- NOTE | 2020-10-28 17:13 | PC.NURSE ---
pt to floor from ER with blood at end of running. Pt denies pain, denies shortness of breath. He has no transfusion reaction SX.
--- NOTE | 2020-10-28 17:19 | PC.NURSE ---
pt transported to floor with blood running.
--- NOTE | 2020-10-28 18:11 | PM.PNNEP ---
Subjective Subjective Date of Service: 11/02/20 Physical Exam Vital Signs: Vital Signs: Last Vital Signs Temp 98.1 F 10/28/20 17:55 Pulse 77 10/28/20 17:55 Resp 16 10/28/20 17:55 BP 136/89 10/28/20 17:55 Pulse Ox 98 10/28/20 16:00 Body Mass Index 30.3 Objective Data Labs CBC & Chem 7: 10/31/20 06:03 10/31/20 06:03 Labs: Laboratory Results - last 24 hr 10/28/20 10/28/20 10/28/20 12:09 12:09 12:09 WBC 7.6 RBC 2.35 L Hgb 6.0 L* Hct 19.5 L* MCV 83.0 MCH 25.5 L MCHC 30.8 L RDW 15.7 Plt Count 198 MPV 10.2 Immature Gran % (Auto) 1.0 H Neut % (Auto) 66.3 Lymph % (Auto) 9.7 L [place] % (Auto) 12.7 H Eos % (Auto) 10.2 H Baso % (Auto) 0.1 Lymph # (Auto) 0.7 L [place] # (Auto) 1.0 Eos # (Auto) 0.8 H Baso # (Auto) 0.0 Abs Immat Gran (auto) 0.08 H Absolute Neuts (auto) 5.1 Absolute Nucleated RBC 0.000 Nucleated RBC % (auto) 0.0 Smear Path Review SEE NOTE PT 28.6 H INR 2.5 H APTT 37.2 Sodium 133 L Potassium 2.5 L* D Chloride 87 L Carbon Dioxide 34 H Anion Gap 15 BUN 108 H* D Creatinine 3.03 H Estim Creat Clear Calc 24.5 Estimated GFR 20 Random Glucose 172 H D Calcium 8.4 D Total Bilirubin 0.5 Direct Bilirubin 0.2 AST 24 ALT 17 Alkaline Phosphatase 74 Troponin I High Sens B-Natriuretic Peptide Total Protein 5.5 L Albumin 3.7 Urine Color Urine Appearance Urine pH Ur Specific [place] Urine Protein Urine Glucose (UA) Urine Ketones Urine Blood Urine Nitrite Ur Leukocyte Esterase Ur Random Sodium Urine Creatinine Stool Occult Blood COVID-19 (ARLIN) COVID-19 Clin Com Blood Type Antibody Screen Crossmatch 10/28/20 10/28/20 10/28/20 12:09 12:40 12:50 WBC RBC Hgb Hct MCV MCH MCHC RDW Plt Count MPV Immature Gran % (Auto) Neut % (Auto) Lymph % (Auto) [place] % (Auto) Eos % (Auto) Baso % (Auto) Lymph # (Auto) [place] # (Auto) Eos # (Auto) Baso # (Auto) Abs Immat Gran (auto) Absolute Neuts (auto) Absolute Nucleated RBC Nucleated RBC % (auto) Smear Path Review PT INR APTT Sodium Potassium Chloride Carbon Dioxide Anion Gap BUN Creatinine Estim Creat Clear Calc Estimated GFR Random Glucose Calcium Total Bilirubin Direct Bilirubin AST ALT Alkaline Phosphatase Troponin I High Sens 13.4 B-Natriuretic Peptide 91 Total Protein Albumin Urine Color Urine Appearance Urine pH Ur Specific [place] Urine Protein Urine Glucose (UA) Urine Ketones Urine Blood Urine Nitrite Ur Leukocyte Esterase Ur Random Sodium Urine Creatinine Stool Occult Blood POSITIVE COVID-19 ([facility]LIN) COVID-Or[employer] Blood Type A Positive Antibody Screen NEGATIVE Crossmatch See Detail 10/28/20 10/28/20 10/28/20 16:03 16:03 16:03 WBC RBC Hgb Hct MCV MCH MCHC RDW Plt Count MPV Immature Gran % (Auto) Neut % (Auto) Lymph % (Auto) [place] % (Auto) Eos % (Auto) Baso % (Auto) Lymph # (Auto) [place] # (Auto) Eos # (Auto) Baso # (Auto) Abs Immat Gran (auto) Absolute Neuts (auto) Absolute Nucleated RBC Nucleated RBC % (auto) Smear Path Review PT INR APTT Sodium Potassium Chloride Carbon Dioxide Anion Gap BUN Creatinine Estim Creat Clear Calc Estimated GFR Random Glucose Calcium Total Bilirubin Direct Bilirubin AST ALT Alkaline Phosphatase Troponin I High Sens B-Natriuretic Peptide Total Protein Albumin Urine Color YELLOW Urine Appearance CLEAR Urine pH 6.0 Ur Specific [place] <= 1.005 Urine Protein NEG Urine Glucose (UA) NEG Urine Ketones NEG Urine Blood NEG Urine Nitrite NEG Ur Leukocyte Esterase NEG Ur Random Sodium 49.0 Urine Creatinine 55.24 Stool Occult Blood COVID-19 ([facility]LIN) Negative [employer] See Note Blood Type Antibody Screen Crossmatch Procedures Date of Service Date of Service: 10/28/20 Assessment & Plan Assessment and plan (1) Acute kidney injury: Status: Acute Assessment and Plan: KEVIN and severe hypokalemia due to volume depletion due to diuretics Hold Diuretics Replace K Full consult to follow Time Spent With Patient Time: Total time spent is greater than 50% in coordination of care (as documented) at patient's floor/unit and/or counseling patient: Progress Note: Quality Stroke Does the patient have a stroke diagnosis?: No
--- NOTE | 2020-10-28 18:21 | PC.NURSE ---
first unit FFP infused, second unit running. Pt tolerating well.
--- NOTE | 2020-10-28 18:51 | PC.NURSE ---
FFP second unit was transfused, not able to chart at this time, net manager aware.
--- NOTE | 2020-10-28 18:54 | PC.NURSE ---
second unit of FFP end time 1834.
[2020-10-28 19:23] LABS: Anion Gap 19 (12-20); Blood Urea Nitrogen 100 mg/dL (9-16); Calcium 8.6 mg/dL (8.4-10.2); Carbon Dioxide 30 mmol/L (22-29); Chloride 90 mmol/L (96-108); Creatinine Clr Calc Pharmacy 29.5; Estimated Glomerular Filt Rate 25; Glucose Random 126 mg/dL (60-115); Potassium 2.8 mmol/L (3.3-5.1); Sodium 136 mmol/L (135-145)
[2020-10-28] MEDS: oxyCODONE HCl Immed Release 5 MG TABLET PO (19:48)
[2020-10-28] MEDS: Pregabalin 25 MG CAPSULE PO (21:05)
[2020-10-28] MEDS: Tamsulosin HCL 0.4 MG CAPSULE PO (21:05)
[2020-10-28] MEDS: Digoxin 0.125 MG TABLET PO (21:06)
[2020-10-28] MEDS: 0.9 % Sodium Chloride Flush 3 ML SYRINGE IVFLUSH (21:12)
[2020-10-29] VITALS (11 sets, daily range): BP systolic 111–152; BP diastolic 52–70; PULSE 68–82; RESP 16–20; TEMP 36.2–36.9; O2SAT 93–99
[2020-10-29] MEDS: oxyCODONE HCl Immed Release 5 MG TABLET PO ×3 (05:49→22:36)
[2020-10-29 07:08] LABS: INTERNATIONAL NORM RATIO 1.5 (0.9-1.1); Prothrombin Time 16.7 SEC (9.9-13.0)
[2020-10-29 07:10] LABS: Basophils Percent Auto 0.3 % (0-2); Eosinophils Absolute Auto 0.7 X10*3/uL (0.0-0.4); Eosinophils Percent Auto 10.5 % (0-4); Hematocrit 24.5 % (42-52); Hemoglobin 7.7 g/dl (14.0-18.0); Imm Gran Abs Auto 0.08 X10*3/uL (0.00-0.03); Imm Gran Pct Auto 1.2 % (0.0-0.4); Lymphocytes Absolute Auto 0.5 X10*3/uL (1.2-4.9); Lymphocytes Percent Auto 7.1 % (20-40); MANUAL DIFF FLAG NO; Mean Corpuscular HGB Conc 31.4 g/dl (31.0-36.0); Mean Corpuscular Hemoglobin 26.3 pg (27.0-33.0); Mean Corpuscular Volume 83.6 fL (80-98); Monocytes Absolute Auto 0.8 X10*3/uL (0.1-1.2); Neutrophils Absolute Auto 4.7 X10*3/uL (2.0-8.3); Neutrophils Percent Auto 68.9 % (45-73); Platelet Count 186 X10*3/uL (160-400); Red Blood Count 2.93 X10*6/uL (4.60-5.80); Red Cell Distribution Width 15.5 % (11.0-16.0); White Blood Count 6.8 X10*3/uL (4.8-10.8)
[2020-10-29] MEDS: 0.9 % Sodium Chloride Flush 3 ML SYRINGE IVFLUSH ×3 (07:28→22:37)
[2020-10-29] MEDS: Morphine Sulfate 4 MG/ML CARTRIDGE 2 MG IVPUSH (07:36)
[2020-10-29] MEDS: Pregabalin 25 MG CAPSULE PO ×3 (07:37→20:14)
[2020-10-29] MEDS: Metoprolol Succinate ER 25 MG TAB.ER.24H PO (07:37)
[2020-10-29] MEDS: Isosorbide Mononitrate 30 MG TAB.ER.24H PO (07:37)
[2020-10-29 07:38] LABS: EOS Counted 0 CELLS; EOS QC POS YES; EOS Stain Quality OK YES; WBC, Counted 0 CELLS
[2020-10-29 07:51] LABS: Anion Gap 15 (12-20); Blood Urea Nitrogen 93 mg/dL (9-16); Calcium 8.4 mg/dL (8.4-10.2); Carbon Dioxide 33 mmol/L (22-29); Chloride 91 mmol/L (96-108); Creatinine Clr Calc Pharmacy 35.8; Estimated Glomerular Filt Rate 31; Glucose Random 143 mg/dL (60-115); Magnesium 3.1 mg/dL (1.6-2.6); Potassium 2.6 mmol/L (3.3-5.1); Sodium 136 mmol/L (135-145)
[2020-10-29] MEDS: Pantoprazole Sodium 40 MG/10 ML VIAL IVPUSH ×2 (07:59→15:57)
[2020-10-29] MEDS: Potassium Chloride/H20 10 MEQ/100 ML PIGGYBACK 100 MEQ IV (08:00)
[2020-10-29] MEDS: Potassium Chloride Packet 20 MEQ PACKET 40 MEQ PO ×3 (08:08→15:56)
--- NOTE | 2020-10-29 11:38 | P.CONCA_ITS ---
History of Present Illness History of Present Illness Date of Service: 10/29/20 Requesting physician: Trell Dao Chief complaint: Lethargy, weakness Narrative: 80-year-old gentleman who has background history of coronary artery disease with prior bypass surgery, chronic atrial ablation on anticoagulation, right ventricular failure with tricuspid regurgitation and thoracic aortic aneurysm. He has been diagnosed with lung cancer and is undergoing immunothe rapy at [facility]. For tricuspid valve regurgitation and RV failure he has been seeing Dr. Gerber for MitraClip in the tricuspid position. He recently underwent hip surgery. He said he was doing fine till a few days ago when he started noticing significant weight gain and edema. He was feeling tired and weak and decided to come to the emergency department. He was noticed to be significantly anemic with hemoglobin of 6. He was transfused 2 units of blood. He was hypotensive in his medications were held. He said he has noticed significant peripheral edema. He is saying he gained only 6 lb. His Coumadin has been held. Due to his anemia and GI was consulted who are considering endoscopy and they asked us to do a perioperative cardiovascular risk assessment on him. He said he was taking torsemide 60 mg twice a day along with metolazone daily. He said initially this work but more recently he noticed that his urine output has decreased significantly. Review of Systems Review of Systems: Peripheral edema PMFSH Past Medical History Medical History CAD (coronary artery disease) Chronic a-fib Congestive heart failure Enlarged RV (right ventricle) RVF (right ventricular failure) Thoracic aortic aneurysm Tricuspid regurgitation Family History Family History Father CVD (cardiovascular disease) Mother CVD (cardiovascular disease) Surgical History Surgical History History of radiofrequency ablation (RFA) procedure for cardiac arrhythmia History of total hip arthroplasty Hx of cardiac cath Hx of heart bypass surgery Social History Social History Household Members: Spouse Housing: House Do you presently have visiting nurse or other home services: Yes Patient Tobacco Use Status: Former Tobacco user Quit Date: 25 yrs ago Tobacco use type: Cigarette Smoked in Last 30 Days: No e-Cigarette/Vaping Use: Former Use Patient Interested in Nicotine Replacement: No Use of substances other than those prescribed or required for medical reasons: No Currently Displaying Signs/Symptoms of Drug Intoxication Withdrawal: No Have you been hit, kicked, punched, or otherwise hurt by someone within the past year? If so, by whom?: No Do you feel safe in your current relationship?: Yes Is there a partner from a previous relationship who is making you feel unsafe now?: No Are you made to feel afraid or neglected: No Advance Directives: No Advance Directives Information Provided: Yes Do you have thoughts of harming others: None Do you have a plan to hurt others: No Plan Recently lost weight without trying: No Nutrition Risks: No Nutritional Risk Poor oral hygiene: No Meds Allergies Allergy/AdvReac Type Severity Reaction Status Date / Time gabapentin [GABAPENTIN] Allergy Unknown UNKNOWN, Verified 08/08/20 13:35 heart palipitations Bvilcvn-Uti-Erj Reductase Allergy Unknown MUSCLE Verified 08/08/20 13:35 Inhibitor /JOINT PAIN [[id number] REDUCTASE INHIBITOR] Active Medications: Current Medications Generic Name Dose Route Start Last Admin Trade Name Freq PRN Reason Stop Dose Admin Acetaminophen 650 mg 10/28/20 14:59 Acetaminophen 325 Mg Tablet PO Q6H PRN Pain, Mild (Pain Scale 1-3) Digoxin 0.125 mg 10/28/20 21:00 10/28/20 21:06 Digoxin 0.125 Mg Tablet PO 0.125 mg BEDTIME CLAUDIA Administration Isosorbide Mononitrate 30 mg 10/29/20 09:00 10/29/20 07:37 Isosorbide Mononitrate 30 Mg Tab.Er.24h PO 30 mg DAILY CLAUDIA Administration Protocol Metoprolol Succinate 25 mg 10/29/20 09:00 10/29/20 07:37 Metoprolol Succinate Er 25 Mg Tab.Er.24h PO 25 mg DAILY CLAUDIA Administration Protocol Morphine Sulfate 2 mg 10/28/20 14:59 10/29/20 07:36 Morphine Sulfate 4 Mg/Ml Cartridge IVPUSH 2 mg Q4H PRN Administration Pain, Severe (Pain Scale 7-10) Protocol Ondansetron HCl 4 mg 10/28/20 14:59 Ondansetron Hcl 4 Mg/2 Ml Vial IVPUSH Q8H PRN Nausea and Vomiting Oxycodone HCl 5 mg 10/28/20 15:35 10/29/20 05:49 Oxycodone Hcl Immed Release 5 Mg Tablet PO 5 mg Q4H PRN Administration Pain Pantoprazole Sodium 40 mg 10/29/20 07:45 10/29/20 07:59 Pantoprazole Sodium 40 Mg/10 Ml Vial IVPUSH 40 mg BID@[id number] CLAUDIA Administration Pharmacy Consult 1 each 10/28/20 14:55 Consult Rx Perform Med Rec MISCELLANE ONCE PRN Consult order Pharmacy Consult 1 each 10/28/20 15:07 Consult Rx Perform Med Rec MISCELLANE ONCE PRN Consult order Potassium Chloride 40 meq 10/29/20 08:00 10/29/20 08:08 Potassium Chloride Packet 20 Meq Packet PO 10/29/20 16:01 40 meq Q4H CLAUDIA Administration Pregabalin 25 mg 10/28/20 21:00 10/29/20 07:37 Pregabalin 25 Mg Capsule PO 25 mg TID CLAUDIA Administration Sodium Chloride 3 ml 10/28/20 16:00 10/29/20 07:28 0.9 % Sodium Chloride Flush 3 Ml Syringe IVFLUSH 3 ml QSHIFT CLAUDIA Administration Tamsulosin HCl 0.4 mg 10/28/20 21:00 10/28/20 21:05 Tamsulosin Hcl 0.4 Mg Capsule PO 0.4 mg BEDTIME CLAUDIA Administration Home Medications Medication Instructions Recorded Confirmed Last Taken Type digoxin 125 mcg (0.125 mg) tablet 125 mcg PO BEDTIME 04/28/20 10/28/20 10/27/20 History acetaminophen 500 mg tablet 500 mg PO Q8H PRN 10/28/20 10/28/20 10/27/20 History cephalexin 500 mg capsule 1 cap PO Q8H 10/28/20 10/28/20 10/27/20 History fentanyl 50 mcg/hr transdermal 1 patch TOPICAL Q3D 10/28/20 10/28/20 10/26/20 History patch oxycodone 5 mg tablet 5 mg PO Q4H PRN 10/28/20 10/28/20 10/28/20 History pregabalin 25 mg capsule 1 cap PO TID 10/28/20 10/28/20 10/27/20 History tamsulosin 0.4 mg capsule 1 cap PO BEDTIME 10/28/20 10/28/20 10/27/20 History warfarin 1 mg tablet 1 tab PO DAILY 10/28/20 10/28/20 10/27/20 History Physical Exam Vital Signs: Vital Signs: Last Vital Signs Temp 98.0 F 10/29/20 07:31 Pulse 82 10/29/20 07:37 Resp 20 10/29/20 07:36 BP 137/61 10/29/20 07:37 Pulse Ox 99 10/29/20 07:31 Body Mass Index 30.3 GENERAL APPEARANCE: in no acute distress, pleasant. NECK: no carotid bruit, elevated JVD with prominent V-waves. SKIN: no suspicious lesions, warm and dry. HEART: Systolic murmur aortic area, systolic murmur left parasternal border. LUNGS: clear to auscultation bilaterally. ABDOMEN: soft, nontender. EXTREMITIES: 2+ edema PERIPHERAL PULSES: equal. NEUROLOGIC: No gross deficits, AAO X 3 Results Labs and Meds Result diagrams: 10/29/20 06:06 10/29/20 06:06 Lab results: Laboratory Results - last 24 hr 10/28/20 10/28/20 10/28/20 12:09 12:09 12:09 WBC 7.6 RBC 2.35 L Hgb 6.0 L* Hct 19.5 L* MCV 83.0 MCH 25.5 L MCHC 30.8 L RDW 15.7 Plt Count 198 MPV 10.2 Immature Gran % (Auto) 1.0 H Neut % (Auto) 66.3 Lymph % (Auto) 9.7 L [place] % (Auto) 12.7 H Eos % (Auto) 10.2 H Baso % (Auto) 0.1 Lymph # (Auto) 0.7 L [place] # (Auto) 1.0 Eos # (Auto) 0.8 H Baso # (Auto) 0.0 Abs Immat Gran (auto) 0.08 H Absolute Neuts (auto) 5.1 Absolute Nucleated RBC 0.000 Nucleated RBC % (auto) 0.0 Smear Path Review SEE NOTE PT 28.6 H INR 2.5 H APTT 37.2 Sodium 133 L Potassium 2.5 L* D Chloride 87 L Carbon Dioxide 34 H Anion Gap 15 BUN 108 H* D Creatinine 3.03 H Estim Creat Clear Calc 24.5 Estimated GFR 20 Random Glucose 172 H D Calcium 8.4 D Magnesium Total Bilirubin 0.5 Direct Bilirubin 0.2 AST 24 ALT 17 Alkaline Phosphatase 74 Troponin I High Sens B-Natriuretic Peptide Total Protein 5.5 L Albumin 3.7 Urine Color Urine Appearance Urine pH Ur Specific [place] Urine Protein Urine Glucose (UA) Urine Ketones Urine Blood Urine Nitrite Ur Leukocyte Esterase Urine Eosinophils % Ur Random Sodium Urine Creatinine Stool Occult Blood COVID-19 (RALIN) COVID-19 Clin Com Blood Type Antibody Screen Crossmatch 10/28/20 10/28/20 10/28/20 12:09 12:40 12:50 WBC RBC Hgb Hct MCV MCH MCHC RDW Plt Count MPV Immature Gran % (Auto) Neut % (Auto) Lymph % (Auto) [place] % (Auto) Eos % (Auto) Baso % (Auto) Lymph # (Auto) [place] # (Auto) Eos # (Auto) Baso # (Auto) Abs Immat Gran (auto) Absolute Neuts (auto) Absolute Nucleated RBC Nucleated RBC % (auto) Smear Path Review PT INR APTT Sodium Potassium Chloride Carbon Dioxide Anion Gap BUN Creatinine Estim Creat Clear Calc Estimated GFR Random Glucose Calcium Magnesium Total Bilirubin Direct Bilirubin AST ALT Alkaline Phosphatase Troponin I High Sens 13.4 B-Natriuretic Peptide 91 Total Protein Albumin Urine Color Urine Appearance Urine pH Ur Specific [place] Urine Protein Urine Glucose (UA) Urine Ketones Urine Blood Urine Nitrite Ur Leukocyte Esterase Urine Eosinophils % Ur Random Sodium Urine Creatinine Stool Occult Blood POSITIVE COVID-19 (ARLIN) COVID-19 Clin Com Blood Type A Positive Antibody Screen NEGATIVE Crossmatch See Detail 10/28/20 10/28/20 10/28/20 16:03 16:03 16:03 WBC RBC Hgb Hct MCV MCH MCHC RDW Plt Count MPV Immature Gran % (Auto) Neut % (Auto) Lymph % (Auto) [place] % (Auto) Eos % (Auto) Baso % (Auto) Lymph # (Auto) [place] # (Auto) Eos # (Auto) Baso # (Auto) Abs Immat Gran (auto) Absolute Neuts (auto) Absolute Nucleated RBC Nucleated RBC % (auto) Smear Path Review PT INR APTT Sodium Potassium Chloride Carbon Dioxide Anion Gap BUN Creatinine Estim Creat Clear Calc Estimated GFR Random Glucose Calcium Magnesium Total Bilirubin Direct Bilirubin AST ALT Alkaline Phosphatase Troponin I High Sens B-Natriuretic Peptide Total Protein Albumin Urine Color YELLOW Urine Appearance CLEAR Urine pH 6.0 Ur Specific [place] <= 1.005 Urine Protein NEG Urine Glucose (UA) NEG Urine Ketones NEG Urine Blood NEG Urine Nitrite NEG Ur Leukocyte Esterase NEG Urine Eosinophils % 0.0 Ur Random Sodium 49.0 Urine Creatinine 55.24 Stool Occult Blood COVID-19 (ARLIN) Negative COVID-19 Clin Com See Note Blood Type Antibody Screen Crossmatch 10/28/20 10/29/20 10/29/20 18:25 06:06 06:06 WBC 6.8 RBC 2.93 L D Hgb 7.7 L D Hct 24.5 L D MCV 83.6 MCH 26.3 L MCHC 31.4 RDW 15.5 Plt Count 186 MPV 11.0 Immature Gran % (Auto) 1.2 H Neut % (Auto) 68.9 Lymph % (Auto) 7.1 L [place] % (Auto) 12.0 H Eos % (Auto) 10.5 H Baso % (Auto) 0.3 Lymph # (Auto) 0.5 L [place] # (Auto) 0.8 Eos # (Auto) 0.7 H Baso # (Auto) 0.0 Abs Immat Gran (auto) 0.08 H Absolute Neuts (auto) 4.7 Absolute Nucleated RBC 0.000 Nucleated RBC % (auto) 0.0 Smear Path Review PT 16.7 H D INR 1.5 H APTT Sodium 136 Potassium 2.8 L Chloride 90 L Carbon Dioxide 30 H Anion Gap 19 BUN 100 H* Creatinine 2.54 H Estim Creat Clear Calc 29.5 Estimated GFR 25 Random Glucose 126 H Calcium 8.6 Magnesium Total Bilirubin Direct Bilirubin AST ALT Alkaline Phosphatase Troponin I High Sens B-Natriuretic Peptide Total Protein Albumin Urine Color Urine Appearance Urine pH Ur Specific [place] Urine Protein Urine Glucose (UA) Urine Ketones Urine Blood Urine Nitrite Ur Leukocyte Esterase Urine Eosinophils % Ur Random Sodium Urine Creatinine Stool Occult Blood COVID-19 (ARLIN) COVID-19 Clin Com Blood Type Antibody Screen Crossmatch 10/29/20 06:06 WBC RBC Hgb Hct MCV MCH MCHC RDW Plt Count MPV Immature Gran % (Auto) Neut % (Auto) Lymph % (Auto) [place] % (Auto) Eos % (Auto) Baso % (Auto) Lymph # (Auto) [place] # (Auto) Eos # (Auto) Baso # (Auto) Abs Immat Gran (auto) Absolute Neuts (auto) Absolute Nucleated RBC Nucleated RBC % (auto) Smear Path Review PT INR APTT Sodium 136 Potassium 2.6 L Chloride 91 L Carbon Dioxide 33 H Anion Gap 15 BUN 93 H* Creatinine 2.09 H Estim Creat Clear Calc 35.8 Estimated GFR 31 Random Glucose 143 H Calcium 8.4 Magnesium 3.1 H Total Bilirubin Direct Bilirubin AST ALT Alkaline Phosphatase Troponin I High Sens B-Natriuretic Peptide Total Protein Albumin Urine Color Urine Appearance Urine pH Ur Specific [place] Urine Protein Urine Glucose (UA) Urine Ketones Urine Blood Urine Nitrite Ur Leukocyte Esterase Urine Eosinophils % Ur Random Sodium Urine Creatinine Stool Occult Blood COVID-19 (ARLIN) COVID-19 Clin Com Blood Type Antibody Screen Crossmatch Imaging Radiologist's impression: Impressions Chest X-Ray 10/28/20 11:48 IMPRESSION: Cardiomegaly without pulmonary edema. Venous Duplex 10/28/20 12:00 IMPRESSION: No DVT demonstrated in the bilateral lower extremity. Abdomen/Pelvis CT 10/28/20 12:59 IMPRESSION: Diverticulosis. Stool throughout the colon suggestive of constipation. Question wall thickening of the duodenum. Bilateral renal cysts. Small right renal stone. Enlarged heart. Question evidence of right heart compromise the cirrhotic changes of the liver. 6 x 7 mm left lower lobe groundglass nodule. Chest follow-up recommended. Assessment and Plan (1) Symptomatic anemia: Status: Acute (2) RVF (right ventricular failure): Status: Acute (3) Tricuspid regurgitation: Status: Acute Pleasant 80-year-old gentleman with known history of right heart failure and tricuspid valve regurgitation. Is presenting for anemia and volume overload. He has been transfused. His blo od pressure is improved. I think we should hold his beta-orestes currently. Also with worsening of creatinine and hypokalemia, digoxin is not the best drug to use the right now. I am holding the digoxin. I am giving 80 mg IV b.i.d. Lasix. He may need metolazone with that. I think he has significant volume overload right now. He is saying he was seen at [facility] for MitraClip in the tricuspid position but after his diagnosis of cancer currently all plans are on hold. I do not think he is in any condition to undergo endoscopy right now. I think we have to optimize him. Coumadin can be held for now. Please avoid further vitamin K in him. Thank you for allowing me to participate in the care of your patient. Please feel free to contact me if you have any questions. Procedures Date of Service Date of Service: 10/29/20
[2020-10-29] MEDS: Furosemide 100 MG/10 ML VIAL 80 MG IVPUSH (12:43)
--- NOTE | 2020-10-29 14:28 | HO.PM.IMPN ---
Subjective Subjective Date of Service: 10/29/20 Interval History: the patient was seen and evaluated this morning Laying in bed, feels more energized Hemoglobin to 7.7 this morning and improvement of creatinine Denies any fever, chills or shortness of breath No reported other overnight events. Systemic review: No fever, chills but reports generalized weakness No chest pain, but has some exertion and palpitation Dyspnea on exertion improving No abdominal pain, nausea or vomiting No urinary symptoms No any rash or wounds Physical Exam Vital Signs: Vital Signs: Last Vital Signs Temp 98.0 F 10/29/20 13:20 Pulse 71 10/29/20 13:20 Resp 20 10/29/20 13:20 BP 129/54 L 10/29/20 13:20 Pulse Ox 98 10/29/20 11:54 Body Mass Index 30.3 Const: Other: Constitutional : Alert, oriented, not in distress Neck : Normal inspection, Supple Cardiovascular : Irregular irregular, S1 S2, systolic murmur, +2 bilateral lower extremity edema Respiratory : Fair bilateral air entry, no crackles, wheezes or rhonchi Gastrointestinal: soft, lax, Normal bowel sounds, Non tender Skin : Warm, Dry Neurological : Alert & oriented x3, No focal deficit Objective Data Current Medications Generic Name Dose Route Start Last Admin Trade Name Freq PRN Reason Stop Dose Admin Acetaminophen 650 mg 10/28/20 14:59 Acetaminophen 325 Mg Tablet PO Q6H PRN Pain, Mild (Pain Scale 1-3) Furosemide 80 mg 10/29/20 12:45 10/29/20 12:43 Furosemide 100 Mg/10 Ml Vial IVPUSH 80 mg Q12H CLAUDIA Administration Protocol Isosorbide Mononitrate 30 mg 10/29/20 09:00 10/29/20 07:37 Isosorbide Mononitrate 30 Mg Tab.Er.24h PO 30 mg DAILY CLAUDIA Administration Protocol Morphine Sulfate 2 mg 10/28/20 14:59 10/29/20 07:36 Morphine Sulfate 4 Mg/Ml Cartridge IVPUSH 2 mg Q4H PRN Administration Pain, Severe (Pain Scale 7-10) Protocol Ondansetron HCl 4 mg 10/28/20 14:59 Ondansetron Hcl 4 Mg/2 Ml Vial IVPUSH Q8H PRN Nausea and Vomiting Oxycodone HCl 5 mg 10/28/20 15:35 10/29/20 11:47 Oxycodone Hcl Immed Release 5 Mg Tablet PO 5 mg Q4H PRN Administration Pain Pantoprazole Sodium 40 mg 10/29/20 07:45 10/29/20 07:59 Pantoprazole Sodium 40 Mg/10 Ml Vial IVPUSH 40 mg BID@0630,1630 CLAUDIA Administration Pharmacy Consult 1 each 10/28/20 14:55 Consult Rx Perform Med Rec MISCELLANE ONCE PRN Consult order Pharmacy Consult 1 each 10/28/20 15:07 Consult Rx Perform Med Rec MISCELLANE ONCE PRN Consult order Potassium Chloride 40 meq 10/29/20 08:00 10/29/20 11:47 Potassium Chloride Packet 20 Meq Packet PO 10/29/20 16:01 40 meq Q4H CLAUDIA Administration Pregabalin 25 mg 10/28/20 21:00 10/29/20 07:37 Pregabalin 25 Mg Capsule PO 25 mg TID CLAUDIA Administration Sodium Chloride 3 ml 10/28/20 16:00 10/29/20 07:28 0.9 % Sodium Chloride Flush 3 Ml Syringe IVFLUSH 3 ml QSHIFT CLAUDIA Administration Tamsulosin HCl 0.4 mg 10/28/20 21:00 10/28/20 21:05 Tamsulosin Hcl 0.4 Mg Capsule PO 0.4 mg BEDTIME CLAUDIA Administration Labs CBC & Chem 7: 10/29/20 06:06 10/29/20 06:06 Labs: Laboratory Results - last 24 hr 10/28/20 10/28/20 10/28/20 12:09 12:50 16:03 MCV MCH MCHC RDW Plt Count MPV Immature Gran % (Auto) Neut % (Auto) Lymph % (Auto) [place] % (Auto) Eos % (Auto) Baso % (Auto) Lymph # (Auto) [place] # (Auto) Eos # (Auto) Baso # (Auto) Abs Immat Gran (auto) Absolute Neuts (auto) Absolute Nucleated RBC Nucleated RBC % (auto) Smear Path Review SEE NOTE PT INR Anion Gap Estim Creat Clear Calc Estimated GFR Random Glucose Calcium Magnesium Urine Color Urine Appearance Urine pH Ur Specific [place] Urine Protein Urine Glucose (UA) Urine Ketones Urine Blood Urine Nitrite Ur Leukocyte Esterase Urine Eosinophils % Ur Random Sodium Urine Creatinine COVID-19 (ARLIN) Negative COVID-19 Clin Com See Note Blood Type A Positive Antibody Screen NEGATIVE Crossmatch See Detail 10/28/20 10/28/20 10/28/20 16:03 16:03 18:25 MCV MCH MCHC RDW Plt Count MPV Immature Gran % (Auto) Neut % (Auto) Lymph % (Auto) [place] % (Auto) Eos % (Auto) Baso % (Auto) Lymph # (Auto) [place] # (Auto) Eos # (Auto) Baso # (Auto) Abs Immat Gran (auto) Absolute Neuts (auto) Absolute Nucleated RBC Nucleated RBC % (auto) Smear Path Review PT INR Anion Gap 19 Estim Creat Clear Calc 29.5 Estimated GFR 25 Random Glucose 126 H Calcium 8.6 Magnesium Urine Color YELLOW Urine Appearance CLEAR Urine pH 6.0 Ur Specific [place] <= 1.005 Urine Protein NEG Urine Glucose (UA) NEG Urine Ketones NEG Urine Blood NEG Urine Nitrite NEG Ur Leukocyte Esterase NEG Urine Eosinophils % 0.0 Ur Random Sodium 49.0 Urine Creatinine 55.24 COVID-19 (ARLIN) COVID-19 [employer] Blood Type Antibody Screen Crossmatch 10/29/20 10/29/20 10/29/20 06:06 06:06 06:06 MCV 83.6 MCH 26.3 L MCHC 31.4 RDW 15.5 Plt Count 186 MPV 11.0 Immature Gran % (Auto) 1.2 H Neut % (Auto) 68.9 Lymph % (Auto) 7.1 L [place] % (Auto) 12.0 H Eos % (Auto) 10.5 H Baso % (Auto) 0.3 Lymph # (Auto) 0.5 L [place] # (Auto) 0.8 Eos # (Auto) 0.7 H Baso # (Auto) 0.0 Abs Immat Gran (auto) 0.08 H Absolute Neuts (auto) 4.7 Absolute Nucleated RBC 0.000 Nucleated RBC % (auto) 0.0 Smear Path Review PT 16.7 H D INR 1.5 H Anion Gap 15 Estim Creat Clear Calc 35.8 Estimated GFR 31 Random Glucose 143 H Calcium 8.4 Magnesium 3.1 H Urine Color Urine Appearance Urine pH Ur Specific [place] Urine Protein Urine Glucose (UA) Urine Ketones Urine Blood Urine Nitrite Ur Leukocyte Esterase Urine Eosinophils % Ur Random Sodium Urine Creatinine COVID-19 (ARLIN) COVID-19 [employer] Blood Type Antibody Screen Crossmatch Assessment and Plan (1) Symptomatic anemia: Status: Acute (2) Acute kidney injury: Status: Acute (3) Acute blood loss anemia: Status: Acute Assessment and Plan: A 80 years old male with PMH of AFib on warfarin, CHF, tricuspid regurg, CAD among others who presented to the hospital with a complaint of 4 days increased lethargy and dyspnea on exertion. Symptomatic anemia 2/2 acute blood loss +ve Occult blood Hemoglobin improved to 7.7, to give 1/3 unit of blood Received 2 units PRBCs and 2 a FFP GI consult with plan for EGD on Saturday, patient does not want to do colonoscopy Acute kidney injury Hypokalemia Likely secondary to medications, dehydration Improving Creatinine of 2 potassium 2.6, to give replacement Nephrology evaluation Hold nephrotoxic medications AFib INR improved to 1.5 Received vitamin K and FFP to reverse INR Continue metoprolol To monitor DVT PPX SCDs Quality Stroke Does the patient have a stroke diagnosis?: No VTE Prior VTE?: No VTE Risk Level:: Medical - moderate - high VTE Device Contraindication: N/A - Device Ordered VTE Drug Contraindication: Treatment Not Indicated
[2020-10-29 14:54] LABS: Iron 86 mcg/dL (45-160); Percent Iron Saturation 23 % (15-50); Total Iron Binding Capacity 371 mcg/dL (228-428); Unsaturated Iron Binding 285 ug/dL
--- NOTE | 2020-10-29 14:58 | MHC.CM.PN ---
Met with patient, delivered IMM. Patient lives with his , uses a walker for ambulation. PCP is Dr. Adelso [place] of [place]. Patient currently on service with [facility] for nursing INR checks and for PT. Anticipate dc home with resumption of current services. to drive home at dc.
--- NOTE | 2020-10-29 16:21 | PC.NURSE ---
PT RECEIVED 1 UNITS RBC, TOLERATED WELL. PT NONCOMPLIANT WITH HIGH FALL RISK PROTOCOL, REFUSES TELESITTER FOR SAFETY. CONTINUOUS EDUCATION ON PATIENT SAFETY GIVEN. PTS DAUGHTER (JÚNIOR [phone]) CALLED AND REQUESTED PTS DIET TO BE CHANGED TO A REGULAR DIET SINCE PT IS REFUSING COLONOSCOPY. MD NOTIFIED AND ORDER CHANGED. FAMILY AND PT UPDATED ON CHANGE IN DIET.
--- NOTE | 2020-10-29 19:22 | PM.CNNEP ---
History of Present Illness Reason for Consult Consult date: 10/29/20 Reason for consult: KEVIN Chief Complaint Chief complaint: Lethargy, weakness History of Present Illness Narrative: Mr. Cachorro Azar is a 80-year-old gentleman with past medical history of AFib on warfarin, CHF, tricuspid regurg, CAD and CKD stage IIIa BL Cr 1.2-1.3mg/dL (undiagnosed) who presented ot hospital with lethargy and fatigue. He was found to have acute blood loss anemia requiring 2u PRBC. He was noted to have a severe stage KEVIN with Cr peak 3.03mg/dL in this setting. With resuscitation the patient's renal function has improved dramatically to 2.09mg/dL today. Review of Systems Review of Systems Peripheral edema Yes all other systems are reviewed and are negative Constitutional: Reports as per HPI, Reports no additional constitutional complaints, Denies fever(s), Denies headache(s), Reports weakness and Denies weight loss Denies dysphagia and Denies headache(s) Cardiovascular: Reports as per HPI, Reports no additional cardiovascular complaints, Denies chest pain, Reports leg edema and Denies dyspnea on exertion Respiratory: Reports as per HPI, Reports no additional respiratory complaints, Denies cough and Denies dyspnea on exertion Gastrointestinal: Reports as per HPI, Reports no additional gastrointestinal complaints, Denies abdominal pain, Denies change in bowel habits, Denies dysphagia and Denies heartburn Genitourinary: Denies dysuria Denies headache(s) and Reports weakness PMFSH Past Medical History Medical History CAD (coronary artery disease) Chronic a-fib Congestive heart failure Enlarged RV (right ventricle) RVF (right ventricular failure) Thoracic aortic aneurysm Tricuspid regurgitation Family History Family History Father CVD (cardiovascular disease) Mother CVD (cardiovascular disease) Surgical History Surgical History History of radiofrequency ablation (RFA) procedure for cardiac arrhythmia History of total hip arthroplasty Hx of cardiac cath Hx of heart bypass surgery Social History Social History Household Members: Spouse Housing: House Do you presently have visiting nurse or other home services: Yes Patient Tobacco Use Status: Former Tobacco user Quit Date: 25 yrs ago Tobacco use type: Cigarette Smoked in Last 30 Days: No e-Cigarette/Vaping Use: Former Use Patient Interested in Nicotine Replacement: No Use of substances other than those prescribed or required for medical reasons: No Currently Displaying Signs/Symptoms of Drug Intoxication Withdrawal: No Have you been hit, kicked, punched, or otherwise hurt by someone within the past year? If so, by whom?: No Do you feel safe in your current relationship?: Yes Is there a partner from a previous relationship who is making you feel unsafe now?: No Are you made to feel afraid or neglected: No Advance Directives: No Advance Directives Information Provided: Yes Do you have thoughts of harming others: None Do you have a plan to hurt others: No Plan Recently lost weight without trying: No Nutrition Risks: No Nutritional Risk Poor oral hygiene: No Meds Allergies Allergy/AdvReac Type Severity Reaction Status Date / Time gabapentin [GABAPENTIN] Allergy Unknown UNKNOWN, Verified 08/08/20 13:35 heart palipitations Oddidip-Aql-Nto Reductase Allergy Unknown MUSCLE Verified 08/08/20 13:35 Inhibitor /JOINT PAIN [[id number] REDUCTASE INHIBITOR] Active Medications: Current Medications Generic Name Dose Route Start Last Admin Trade Name Freq PRN Reason Stop Dose Admin Acetaminophen 650 mg 10/28/20 14:59 Acetaminophen 325 Mg Tablet PO Q6H PRN Pain, Mild (Pain Scale 1-3) Furosemide 80 mg 10/29/20 12:45 10/29/20 12:43 Furosemide 100 Mg/10 Ml Vial IVPUSH 80 mg Q12H CLAUDIA Administration Protocol Isosorbide Mononitrate 30 mg 10/29/20 09:00 10/29/20 07:37 Isosorbide Mononitrate 30 Mg Tab.Er.24h PO 30 mg DAILY CLAUDIA Administration Protocol Morphine Sulfate 2 mg 10/28/20 14:59 10/29/20 07:36 Morphine Sulfate 4 Mg/Ml Cartridge IVPUSH 2 mg Q4H PRN Administration Pain, Severe (Pain Scale 7-10) Protocol Ondansetron HCl 4 mg 10/28/20 14:59 Ondansetron Hcl 4 Mg/2 Ml Vial IVPUSH Q8H PRN Nausea and Vomiting Oxycodone HCl 5 mg 10/28/20 15:35 10/29/20 11:47 Oxycodone Hcl Immed Release 5 Mg Tablet PO 5 mg Q4H PRN Administration Pain Pantoprazole Sodium 40 mg 10/29/20 07:45 10/29/20 15:57 Pantoprazole Sodium 40 Mg/10 Ml Vial IVPUSH 40 mg BID@0630,1630 [facility] Administration Pharmacy Consult 1 each 10/28/20 14:55 Consult Rx Perform Med Rec MISCELLANE ONCE PRN Consult order Pharmacy Consult 1 each 10/28/20 15:07 Consult Rx Perform Med Rec MISCELLANE ONCE PRN Consult order Pregabalin 25 mg 10/28/20 21:00 10/29/20 15:57 Pregabalin 25 Mg Capsule PO 25 mg TID CLAUDIA Administration Sodium Chloride 3 ml 10/28/20 16:00 10/29/20 15:57 0.9 % Sodium Chloride Flush 3 Ml Syringe IVFLUSH 3 ml QSHIFT CLAUDIA Administration Tamsulosin HCl 0.4 mg 10/28/20 21:00 10/28/20 21:05 Tamsulosin Hcl 0.4 Mg Capsule PO 0.4 mg BEDTIME CLAUDIA Administration Home Medications Medication Instructions Recorded Confirmed Last Taken Type digoxin 125 mcg (0.125 mg) tablet 125 mcg PO BEDTIME 04/28/20 10/28/20 10/27/20 History acetaminophen 500 mg tablet 500 mg PO Q8H PRN 10/28/20 10/28/20 10/27/20 History cephalexin 500 mg capsule 1 cap PO Q8H 10/28/20 10/28/20 10/27/20 History fentanyl 50 mcg/hr transdermal 1 patch TOPICAL Q3D 10/28/20 10/28/20 10/26/20 History patch oxycodone 5 mg tablet 5 mg PO Q4H PRN 10/28/20 10/28/20 10/28/20 History pregabalin 25 mg capsule 1 cap PO TID 10/28/20 10/28/20 10/27/20 History tamsulosin 0.4 mg capsule 1 cap PO BEDTIME 10/28/20 10/28/20 10/27/20 History warfarin 1 mg tablet 1 tab PO DAILY 10/28/20 10/28/20 10/27/20 History Physical Exam Vital Signs: Last Vital Signs Temp 98 F 10/29/20 15:38 Pulse 82 10/29/20 15:38 Resp 18 10/29/20 15:38 BP 126/56 L 10/29/20 15:38 Pulse Ox 98 10/29/20 15:38 Body Mass Index 30.3 Const General: cooperative, healthy appearing, comfortable, no acute distress, well developed, alert, awake, Physically active and ill appearing; No acute distress Resp Effort & Inspection: normal respiratory effort and able to speak in complete sentences Auscultation: clear to auscultation bilaterally Cardio Jugular venous distension: no JVD Palpation: normal PMI Rate: Other Rhythm: regular rhythm and other (Irregularly irregular rhythm) Heart sounds: S1 normal heart sound present, S2 normal heart sound present and Murmur heart sound present (3/6 systolic murmur at LSB) GI Inspection: Yes normal to inspection, No abdominal wall ecchymosis and Yes distended Palpation (GI): Soft to palpation, not firm, nontender, no guarding, not rigid and No hepatosplenomegaly present Auscultation: normal bowel sounds Rectal Exam - Male: Yes deferred General: Yes Bimanual renal exam normal bilaterally, No bladder normal to inspection, No CVA tenderness and Yes no CVA tenderness Back/Spine/Pelvis Back: no CVA tenderness and No CVA tenderness Extrem Other: Bilateral lower extremity swelling with pitting edema. Negative for any calf tenderness. Left hip incision wound healing and negative for any erythema, pus discharge, foul odor, or tenderness. General: Yes edema (1-2 + pitting edema) Results Lab Results Result Diagrams: 10/29/20 06:06 10/29/20 06:06 Lab results: Chemistry 10/28/20 10/28/20 10/29/20 12:09 18:25 06:06 Sodium 133 L 136 136 Potassium 2.5 L* D 2.8 L 2.6 L Carbon Dioxide 34 H 30 H 33 H BUN 108 H* D 100 H* 93 H* Creatinine 3.03 H 2.54 H 2.09 H Calcium 8.4 D 8.6 8.4 Hematology 10/28/20 10/29/20 12:09 06:06 WBC 7.6 6.8 Hgb 6.0 L* 7.7 L D Plt Count 198 186 Urinalysis 10/28/20 16:03 Urine Color YELLOW Urine Appearance CLEAR Urine pH 6.0 Ur Specific [place] <= 1.005 Urine Protein NEG Urine Glucose (UA) NEG Urine Ketones NEG Urine Blood NEG Urine Nitrite NEG Ur Leukocyte Esterase NEG Urine Studies 10/28/20 16:03 Urine Creatinine 55.24 Assessment and Plan (1) Symptomatic anemia: Status: Acute (2) Acute kidney injury: Status: Acute Mr. Cachorro Azar is a 80-year-old gentleman with past medical history of AFib on warfarin, CHF, tricuspid regurg, CAD and CKD stage IIIa BL Cr 1.2-1.3mg/dL (undiagnosed) who presented ot hospital with lethargy and fatigue. He was found to have acute blood loss anemia requiring 2u PRBC. He was noted to have a severe stage KEVIN with Cr peak 3.03mg/dL in this setting. 1. 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 KEVIN improving with transfusion which improved perfusion. Now concern for symptomatic valvulopathy and overload. Plan: - planning GI work up for anemia - continue with IV lasix 80mg IV BID given symptomatic valvulopathy after transfusion - monitor renal function as we diurese - appreciate Cardiology recs - c/w IMdur (3) Acute blood loss anemia: Status: Acute Procedures Date of Service Date of Service: 10/29/20
[2020-10-29] MEDS: Tamsulosin HCL 0.4 MG CAPSULE PO (20:14)
[2020-10-30] VITALS (7 sets, daily range): BP systolic 109–155; BP diastolic 50–63; PULSE 71–89; RESP 18–20; TEMP 36.1–36.9; O2SAT 93–100
[2020-10-30 01:32] LABS: Iron 30 mcg/dL (45-160); Percent Iron Saturation 7 % (15-50); Total Iron Binding Capacity 405 mcg/dL (228-428); Unsaturated Iron Binding 375 ug/dL
[2020-10-30] MEDS: Furosemide 100 MG/10 ML VIAL 80 MG IVPUSH ×3 (01:50→23:31)
[2020-10-30] MEDS: Pantoprazole Sodium 40 MG/10 ML VIAL IVPUSH ×2 (05:31→15:32)
[2020-10-30] MEDS: oxyCODONE HCl Immed Release 5 MG TABLET PO ×4 (05:31→20:54)
[2020-10-30 07:24] LABS: Hemoglobin 9.4 g/dl (14.0-18.0); Mean Corpuscular HGB Conc 32.4 g/dl (31.0-36.0); Mean Corpuscular Hemoglobin 27.6 pg (27.0-33.0); Mean Corpuscular Volume 85.3 fL (80-98); Mean Platelet Volume 10.8 fL (9.4-12.4); Platelet Count 228 X10*3/uL (160-400); Red Cell Distribution Width 15.9 % (11.0-16.0); White Blood Count 7.4 X10*3/uL (4.8-10.8)
[2020-10-30 08:09] LABS: Ferritin 76 ng/mL (20-250)
[2020-10-30 08:10] LABS: Anion Gap 17 (12-20); Blood Urea Nitrogen 72 mg/dL (9-16); Carbon Dioxide 32 mmol/L (22-29); Chloride 92 mmol/L (96-108); Creatinine Clr Calc Pharmacy 49.6; Estimated Glomerular Filt Rate 45; Glucose Random 135 mg/dL (60-115); Sodium 138 mmol/L (135-145)
[2020-10-30] MEDS: Pregabalin 25 MG CAPSULE PO ×3 (08:50→20:54)
[2020-10-30] MEDS: 0.9 % Sodium Chloride Flush 3 ML SYRINGE IVFLUSH ×3 (08:50→20:55)
[2020-10-30] MEDS: Isosorbide Mononitrate 30 MG TAB.ER.24H PO (08:50)
[2020-10-30] MEDS: Potassium Chloride Packet 20 MEQ PACKET 40 MEQ PO ×2 (08:50→12:26)
--- NOTE | 2020-10-30 12:14 | HO.PM.IMPN ---
Subjective Subjective Date of Service: 10/30/20 Interval History: the patient was seen and evaluated this morning Laying in bed, feels more energy Hemoglobin to 9.7 this morning and improvement of creatinine to 1.5 Denies any fever, chills or shortness of breath No reported other overnight events. Systemic review: No fever, chills but reports generalized weakness No chest pain, but has some exertion and palpitation No shortness of breath No abdominal pain, nausea or vomiting No urinary symptoms No any rash or wounds Physical Exam Vital Signs: Vital Signs: Last Vital Signs Temp 97.8 F 10/30/20 07:23 Pulse 71 10/30/20 08:50 Resp 20 10/30/20 07:23 BP 109/53 L 10/30/20 08:50 Pulse Ox 100 10/30/20 07:23 Body Mass Index 30.3 Const: Other: Constitutional : Alert, oriented, not in distress Neck : Normal inspection, Supple Cardiovascular : Irregular irregular, S1 S2, systolic murmur, +2 bilateral lower extremity edema Respiratory : Fair bilateral air entry, no crackles, wheezes or rhonchi Gastrointestinal: soft, lax, Normal bowel sounds, Non tender Skin : Warm, Dry Neurological : Alert & oriented x3, No focal deficit Objective Data Current Medications Generic Name Dose Route Start Last Admin Trade Name Freq PRN Reason Stop Dose Admin Acetaminophen 650 mg 10/28/20 14:59 Acetaminophen 325 Mg Tablet PO Q6H PRN Pain, Mild (Pain Scale 1-3) Furosemide 80 mg 10/29/20 12:45 10/30/20 01:50 Furosemide 100 Mg/10 Ml Vial IVPUSH 80 mg Q12H CLAUDIA Administration Protocol Isosorbide Mononitrate 30 mg 10/29/20 09:00 10/30/20 08:50 Isosorbide Mononitrate 30 Mg Tab.Er.24h PO 30 mg DAILY CLAUDIA Administration Protocol Morphine Sulfate 2 mg 10/28/20 14:59 10/29/20 07:36 Morphine Sulfate 4 Mg/Ml Cartridge IVPUSH 2 mg Q4H PRN Administration Pain, Severe (Pain Scale 7-10) Protocol Ondansetron HCl 4 mg 10/28/20 14:59 Ondansetron Hcl 4 Mg/2 Ml Vial IVPUSH Q8H PRN Nausea and Vomiting Oxycodone HCl 5 mg 10/28/20 15:35 10/30/20 05:31 Oxycodone Hcl Immed Release 5 Mg Tablet PO 5 mg Q4H PRN Administration Pain Pantoprazole Sodium 40 mg 10/29/20 07:45 10/30/20 05:31 Pantoprazole Sodium 40 Mg/10 Ml Vial IVPUSH 40 mg BID@0630,1630 CLAUDIA Administration Pharmacy Consult 1 each 10/28/20 14:55 Consult Rx Perform Med Rec MISCELLANE ONCE PRN Consult order Pharmacy Consult 1 each 10/28/20 15:07 Consult Rx Perform Med Rec MISCELLANE ONCE PRN Consult order Potassium Chloride 40 meq 10/30/20 08:30 10/30/20 08:50 Potassium Chloride Packet 20 Meq Packet PO 10/30/20 12:31 40 meq Q4H CLAUDIA Administration Pregabalin 25 mg 10/28/20 21:00 10/30/20 08:50 Pregabalin 25 Mg Capsule PO 25 mg TID CLAUDIA Administration Sodium Chloride 3 ml 10/28/20 16:00 10/30/20 08:50 0.9 % Sodium Chloride Flush 3 Ml Syringe IVFLUSH 3 ml QSHIFT CLAUDIA Administration Tamsulosin HCl 0.4 mg 10/28/20 21:00 10/29/20 20:14 Tamsulosin Hcl 0.4 Mg Capsule PO 0.4 mg BEDTIME CLAUDIA Administration Labs CBC & Chem 7: 10/30/20 06:18 10/30/20 06:18 Labs: Laboratory Results - last 24 hr 10/28/20 10/29/20 10/30/20 12:50 06:06 00:54 MCV MCH MCHC RDW Plt Count MPV Absolute Nucleated RBC Nucleated RBC % (auto) Anion Gap Estim Creat Clear Calc Estimated GFR Random Glucose Calcium Iron 86 30 L TIBC 371 405 % Saturation 23 7 L Unsat Iron Binding 285 375 Ferritin Crossmatch See Detail 10/30/20 10/30/20 06:18 06:18 MCV 85.3 MCH 27.6 MCHC 32.4 RDW 15.9 Plt Count 228 MPV 10.8 Absolute Nucleated RBC 0.000 Nucleated RBC % (auto) 0.0 Anion Gap 17 Estim Creat Clear Calc 49.6 Estimated GFR 45 Random Glucose 135 H Calcium 9.0 D Iron TIBC % Saturation Unsat Iron Binding Ferritin 76 Crossmatch Assessment and Plan (1) Symptomatic anemia: Status: Acute (2) Anasarca: Status: Acute (3) Acute kidney injury: Status: Acute Assessment and Plan: A 80 years old male with PMH of AFib on warfarin, CHF, tricuspid regurg, CAD among others who presented to the hospital with a complaint of 4 days increased lethargy and dyspnea on exertion. Symptomatic anemia 2/2 acute blood loss +ve Occult blood Hemoglobin improved to 9.7, after 3 unit of blood Received 2 FFP GI consult with plan for EGD , will hold until further cardiology eval Acute kidney injury Hypokalemia Likely secondary to medications, dehydration Improving Creatinine of 1.5 potassium 3, to give replacement Nephrology evaluation Hold nephrotoxic medications Fluid overload, anasarca History of right-sided heart failure To repeat echo tomorrow Continue IV Lasix b.i.d. Cardiology following AFib INR improved to 1.5 Received vitamin K and FFP to reverse INR Continue metoprolol We could end stopping the warfarin per Cardiology DVT PPX SCDs Quality Stroke Does the patient have a stroke diagnosis?: No VTE Prior VTE?: No VTE Risk Level:: Medical - moderate - high VTE Device Contraindication: N/A - Device Ordered VTE Drug Contraindication: Treatment Not Indicated
--- NOTE | 2020-10-30 17:03 | PM.PNNEP ---
Subjective Subjective Date of Service: 10/30/20 Interval history: no events tolerating IV lasix Physical Exam Vital Signs: Vital Signs: Last Vital Signs Temp 98 F 10/30/20 15:54 Pulse 80 10/30/20 15:54 Resp 18 10/30/20 15:54 BP 125/61 10/30/20 15:54 Pulse Ox 93 10/30/20 15:54 Body Mass Index 30.3 Const: General: alert and awake; No acute distress Chest: Chest palpation & inspection: normal inspection of the chest Resp: Auscultation: clear to auscultation bilaterally Cardio: Rhythm: regular rhythm GI: Palpation (GI): Soft to palpation and nontender Extrem: General: Yes edema (1-2 + pitting edema) Objective Data Labs CBC & Chem 7: 10/30/20 06:18 10/30/20 06:18 Labs: Laboratory Results - last 24 hr 10/30/20 10/30/20 10/30/20 00:54 06:18 06:18 WBC 7.4 RBC 3.40 L Hgb 9.4 L D Hct 29.0 L MCV 85.3 MCH 27.6 MCHC 32.4 RDW 15.9 Plt Count 228 MPV 10.8 Absolute Nucleated RBC 0.000 Nucleated RBC % (auto) 0.0 Sodium 138 Potassium 3.0 L Chloride 92 L Carbon Dioxide 32 H Anion Gap 17 BUN 72 H Creatinine 1.51 H Estim Creat Clear Calc 49.6 Estimated GFR 45 Random Glucose 135 H Calcium 9.0 D Iron 30 L TIBC 405 % Saturation 7 L Unsat Iron Binding 375 Ferritin 76 Procedures Date of Service Date of Service: 10/30/20 Assessment & Plan Assessment and plan (1) Symptomatic anemia: Status: Acute (2) Acute kidney injury: Status: Acute Assessment and Plan: Mr. Cachorro Azar is a 80-year-old gentleman with past medical history of AFib on warfarin, CHF, tricuspid regurg, CAD and CKD stage IIIa BL Cr 1.2-1.3mg/dL (undiagnosed) who presented ot hospital with lethargy and fatigue. He was found to have acute blood loss anemia requiring 2u PRBC. He was noted to have a severe stage KEVIN with Cr peak 3.03mg/dL in this setting. 1. 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 KEVIN improving with transfusion which improved perfusion. Now concern for symptomatic valvulopathy and overload. Plan: - planning GI work up for anemia - continue with IV lasix 80mg IV BID given symptomatic valvulopathy after transfusion - monitor renal function as we diurese - appreciate Cardiology recs - c/w IMdur (3) Acute blood loss anemia: Status: Acute Time Spent With Patient Time: Total time spent is greater than 50% in coordination of care (as documented) at patient's floor/unit and/or counseling patient: Progress Note: Quality Stroke Does the patient have a stroke diagnosis?: No
[2020-10-30] MEDS: Tamsulosin HCL 0.4 MG CAPSULE PO (20:54)
[2020-10-31 04:00] VITALS: BP 125/60; PULSE 85; RESP 18; TEMP 36.5; O2SAT 96
[2020-10-31] MEDS: oxyCODONE HCl Immed Release 5 MG TABLET PO (06:05)
[2020-10-31] MEDS: Pantoprazole Sodium 40 MG/10 ML VIAL IVPUSH (06:05)
[2020-10-31 07:34] LABS: Hematocrit 29.7 % (42-52); Hemoglobin 9.3 g/dl (14.0-18.0); Mean Corpuscular HGB Conc 31.3 g/dl (31.0-36.0); Mean Corpuscular Hemoglobin 26.7 pg (27.0-33.0); Mean Corpuscular Volume 85.3 fL (80-98); Platelet Count 236 X10*3/uL (160-400); Red Blood Count 3.48 X10*6/uL (4.60-5.80); Red Cell Distribution Width 16.3 % (11.0-16.0); White Blood Count 7.1 X10*3/uL (4.8-10.8)
[2020-10-31 07:50] LABS: Anion Gap 17 (12-20); Blood Urea Nitrogen 60 mg/dL (9-16); Calcium 9.2 mg/dL (8.4-10.2); Carbon Dioxide 32 mmol/L (22-29); Chloride 92 mmol/L (96-108); Creatinine Clr Calc Pharmacy 54.3; Estimated Glomerular Filt Rate 50; Glucose Random 145 mg/dL (60-115); Sodium 138 mmol/L (135-145)
[2020-10-31 07:53] VITALS: BP 134/62; PULSE 79; RESP 20; TEMP 36.6; O2SAT 96
[2020-10-31] MEDS: Pregabalin 25 MG CAPSULE PO ×2 (08:46→14:22)
[2020-10-31 08:47] VITALS: BP 134/87; PULSE 97
[2020-10-31] MEDS: Isosorbide Mononitrate 30 MG TAB.ER.24H PO (08:47)
[2020-10-31] MEDS: Potassium Chloride Packet 20 MEQ PACKET 40 MEQ PO ×2 (08:48→14:21)
[2020-10-31] MEDS: 0.9 % Sodium Chloride Flush 3 ML SYRINGE IVFLUSH (08:48)
[2020-10-31 09:12] LABS: Vitamin B12 1208 pg/mL (200-900)
--- NOTE | 2020-10-31 09:59 | P.PNCA_ITS ---
Subjective Subjective Date of Service: 10/31/20 Principal diagnosis: Congestive heart failure, anemia Interval history: Patient says he is feeling better. He is able to lay down flat her today. Leg edema is improved. Overall negative balance appears to be only a L as recorded in the chart. Patient is extremely anxious and insists that he wants to go home. His kidney functions improved. His anemia has improved with transfusion. He was not considered a good candidate over the weekend for endoscopy due to fluid overload. He is upset about the same. Review of Systems Constitutional: Denies chills, Reports fatigue and Denies fever(s) Eyes: Reports no additional eye complaints Reports system reviewed and no additional complaints, except as documented Cardiovascular: Reports Abdominal Distension (Improving), Denies chest pain, Reports leg edema, Denies palpitations, Reports dyspnea on exertion and Reports orthopnea (Improving) Respiratory: Reports no additional respiratory complaints and Reports dyspnea on exertion Gastrointestinal: Reports no additional gastrointestinal complaints Genitourinary: Reports no additional male genitourinary complaints Musculoskeletal: Reports no additional musculoskeletal complaints Skin/Breast: Reports system reviewed and no additional complaints, except as docu Reports system reviewed and no additional complaints, except as documented Psychiatric: Reports no additional psychiatric complaints Endocrine: Reports no additional endocrine complaints, Reports fatigue and Denies palpitations Allergic/Immunologic: Reports no additional allergic/immunologic complaints Physical Exam Vital Signs: Last Vital Signs Temp 97.8 F 10/31/20 07:53 Pulse 97 10/31/20 08:47 Resp 20 10/31/20 07:53 BP 134/87 10/31/20 08:47 Pulse Ox 96 10/31/20 07:53 Body Mass Index 30.3 Const General: cooperative, comfortable, alert, awake and ill appearing Nutritional Appearance: overweight Orientation/consciousness: patient oriented x3 Neck Neck: Yes trachea midline, Yes supple and Yes JVD (Large V-waves) Resp Effort & Inspection: normal respiratory effort Auscultation: clear to auscultation bilaterally Cardio Jugular venous distension: JVD Palpation: abnormal PMI displaced PMI Rhythm: abnormal rhythm irregularly irregular Heart sounds: S1 normal heart sound present, S2 normal heart sound present and Murmur heart sound present systolic holo and at the right sternal border GI Auscultation: normal bowel sounds Skin General skin exam: no rashes or lesions noted Neuro General: patient oriented x3 Extrem General: No clubbing, No cyanosis and Yes edema (4+ edema) Results Labs and Meds Result diagrams: 10/31/20 06:03 10/31/20 06:03 Lab results: Laboratory Results - last 24 hr 10/30/20 10/31/20 10/31/20 06:18 06:03 06:03 WBC 7.1 RBC 3.48 L Hgb 9.3 L Hct 29.7 L MCV 85.3 MCH 26.7 L MCHC 31.3 RDW 16.3 H Plt Count 236 MPV 11.0 Absolute Nucleated RBC 0.000 Nucleated RBC % (auto) 0.0 Sodium 138 Potassium 3.0 L Chloride 92 L Carbon Dioxide 32 H Anion Gap 17 BUN 60 H Creatinine 1.38 Estim Creat Clear Calc 54.3 Estimated GFR 50 Random Glucose 145 H Calcium 9.2 B-Natriuretic Peptide Vitamin B12 1208 H 10/31/20 06:03 WBC RBC Hgb Hct MCV MCH MCHC RDW Plt Count MPV Absolute Nucleated RBC Nucleated RBC % (auto) Sodium Potassium Chloride Carbon Dioxide Anion Gap BUN Creatinine Estim Creat Clear Calc Estimated GFR Random Glucose Calcium B-Natriuretic Peptide Cancelled Vitamin B12 Progress Note: A&P Assessment and plan (1) Decompensated heart failure: Status: Acute Assessment and Plan: Decompensated congestive heart failure secondary to significant anemia in the setting of known severe RV dysfunction and severe tricuspid regurgitation with chronic atrial fibrillation. Clinically seems to have improved from his symptoms but still appears to be significantly fluid overloaded with significant JVD as well as leg edema. Patient insist on being discharged home and was discussed in presence of his daughter Alejandra conroy so once patient to come home. I think that patient is high risk for readmission of discharge today. However insist on wanting to go home. He said he will treat with diuretics at home in the past. He was on torsemide 60 mg b.i.d. and metolazone and home prior to admission and despite heavy diuretic does he had decompensated heart failure. His kidney functions have improved and his anemia is improved and likelihood of factors causing him to have decompensation have reduced. Due to patient's insistence can be discharged home on torsemide 60 mg b.i.d. and additional metolazone as needed. Daily weight monitoring at home and pursuing dry weight as before should be the goal. This was discussed with him. At any sign of w orsening symptoms he is advised to seek emergency care again. Continue to treat anemia which has been his cause of decompensation in the past. Patient is very frustrated about the same. At this point time will avoid oral anticoagulation due to recurrent anemia without any known source of bleeding till further GI workup has been completed. (2) Chronic a-fib: Status: Acute Assessment and Plan: Chronic atrial fibrillation. His kidney functions have improved. Resume digoxin 0.125 mg Saturday and Saturday. Digoxin assay in 1 week as an outpatient. Follow-up BMP and BNP in 1 weeks time. Due to recurrent anemia leading to life-threatening decompensated congestive heart failure at this point time his oral anticoagulation will be withheld till he has further workup from GI perspective. I recommend him to have inpatient workup done however insists on going home to pursue outpatient workup and does not want to stay a single extra day in the hospital. Will let the hospitalist team discussed with GI as the best route for further evaluation as soon as possible. We discussed about Watchman device and at that point the daughter was not willing to discuss this at this point time given he has multiple comorbidities including advancing heart failure, recent diagnosis of lung cancer with metastases which is reasonable. Will follow up as outpatient. Fall Risk Details Current Medications: Current Medications Generic Name Dose Route Start Last Admin Trade Name Freq PRN Reason Stop Dose Admin Acetaminophen 650 mg 10/28/20 14:59 Acetaminophen 325 Mg Tablet PO Q6H PRN Pain, Mild (Pain Scale 1-3) Furosemide 80 mg 10/29/20 12:45 10/30/20 23:31 Furosemide 100 Mg/10 Ml Vial IVPUSH 80 mg Q12H CLAUDIA Administration Protocol Isosorbide Mononitrate 30 mg 10/29/20 09:00 10/31/20 08:47 Isosorbide Mononitrate 30 Mg Tab.Er.24h PO 30 mg DAILY CLAUDIA Administration Protocol Morphine Sulfate 2 mg 10/28/20 14:59 10/29/20 07:36 Morphine Sulfate 4 Mg/Ml Cartridge IVPUSH 2 mg Q4H PRN Administration Pain, Severe (Pain Scale 7-10) Protocol Ondansetron HCl 4 mg 10/28/20 14:59 Ondansetron Hcl 4 Mg/2 Ml Vial IVPUSH Q8H PRN Nausea and Vomiting Oxycodone HCl 5 mg 10/28/20 15:35 10/31/20 06:05 Oxycodone Hcl Immed Release 5 Mg Tablet PO 5 mg Q4H PRN Administration Pain Pantoprazole Sodium 40 mg 10/29/20 07:45 10/31/20 06:05 Pantoprazole Sodium 40 Mg/10 Ml Vial IVPUSH 40 mg BID@0630,1630 CLAUDIA Administration Pharmacy Consult 1 each 10/28/20 14:55 Consult Rx Perform Med Rec MISCELLANE ONCE PRN Consult order Pharmacy Consult 1 each 10/28/20 15:07 Consult Rx Perform Med Rec MISCELLANE ONCE PRN Consult order Potassium Chloride 40 meq 10/31/20 09:00 10/31/20 08:48 Potassium Chloride Packet 20 Meq Packet PO 10/31/20 13:01 40 meq Q4H CLAUDIA Administration Pregabalin 25 mg 10/28/20 21:00 10/31/20 08:46 Pregabalin 25 Mg Capsule PO 25 mg TID CLAUDIA Administration Sodium Chloride 3 ml 10/28/20 16:00 10/31/20 08:48 0.9 % Sodium Chloride Flush 3 Ml Syringe IVFLUSH 3 ml QSHIFT CLAUDIA Administration Tamsulosin HCl 0.4 mg 10/28/20 21:00 10/30/20 20:54 Tamsulosin Hcl 0.4 Mg Capsule PO 0.4 mg BEDTIME CLAUDIA Administration Time Spent With Patient Time: Total time spent is greater than 50% in coordination of care (as documented) at patient's floor/unit and/or counseling patient: Time with patient: Greater than 35 minutes Progress Note: Quality Stroke Does the patient have a stroke diagnosis?: No Procedures Date of Service Date of Service: 10/31/20
--- NOTE | 2020-10-31 11:27 | PM.PNNEP ---
Subjective Subjective Date of Service: 11/02/20 Principal diagnosis: Congestive heart failure, anemia Interval history: no events tolerating IV lasix Physical Exam Vital Signs: Vital Signs: Last Vital Signs Temp 97.8 F 10/31/20 07:53 Pulse 97 10/31/20 08:47 Resp 20 10/31/20 07:53 BP 134/87 10/31/20 08:47 Pulse Ox 96 10/31/20 07:53 Body Mass Index 30.3 Const: General: cooperative, healthy appearing, comfortable, no acute distress, well developed, alert, awake, Physically active and ill appearing; No acute distress Chest: Chest palpation & inspection: normal inspection of the chest Resp: Effort & Inspection: normal respiratory effort and able to speak in complete sentences Auscultation: clear to auscultation bilaterally Cardio: Jugular venous distension: no JVD Palpation: normal PMI Rate: Other Rhythm: regular rhythm and other (Irregularly irregular rhythm) Heart sounds: S1 normal heart sound present, S2 normal heart sound present and Murmur heart sound present (3/6 systolic murmur at LSB) GI: Inspection: Yes normal to inspection, No abdominal wall ecchymosis and Yes distended Palpation (GI): Soft to palpation, not firm, nontender, no guarding, not rigid and No hepatosplenomegaly present Auscultation: normal bowel sounds Rectal Exam - Male: Yes deferred : General: Yes Bimanual renal exam normal bilaterally, No bladder normal to inspection, No CVA tenderness and Yes no CVA tenderness Back/Spine/Pelvis: Back: no CVA tenderness and No CVA tenderness Extrem: Other: Bilateral lower extremity swelling with pitting edema. Negative for any calf tenderness. Left hip incision wound healing and negative for any erythema, pus discharge, foul odor, or tenderness. General: Yes edema (1-2 + pitting edema) Objective Data Labs CBC & Chem 7: 10/31/20 06:03 10/31/20 06:03 Labs: Laboratory Results - last 24 hr 10/30/20 10/31/20 10/31/20 06:18 06:03 06:03 WBC 7.1 RBC 3.48 L Hgb 9.3 L Hct 29.7 L MCV 85.3 MCH 26.7 L MCHC 31.3 RDW 16.3 H Plt Count 236 MPV 11.0 Absolute Nucleated RBC 0.000 Nucleated RBC % (auto) 0.0 Sodium 138 Potassium 3.0 L Chloride 92 L Carbon Dioxide 32 H Anion Gap 17 BUN 60 H Creatinine 1.38 Estim Creat Clear Calc 54.3 Estimated GFR 50 Random Glucose 145 H Calcium 9.2 B-Natriuretic Peptide Vitamin B12 1208 H 10/31/20 06:03 WBC RBC Hgb Hct MCV MCH MCHC RDW Plt Count MPV Absolute Nucleated RBC Nucleated RBC % (auto) Sodium Potassium Chloride Carbon Dioxide Anion Gap BUN Creatinine Estim Creat Clear Calc Estimated GFR Random Glucose Calcium B-Natriuretic Peptide Cancelled Vitamin B12 Procedures Date of Service Date of Service: 10/31/20 Assessment & Plan Assessment and plan (1) Symptomatic anemia: Status: Acute (2) Acute kidney injury: Status: Acute Assessment and Plan: Mr. Cachorro Azar is a 80-year-old gentleman with past medical history of AFib on warfarin, CHF, tricuspid regurg, CAD and CKD stage IIIa BL Cr 1.2-1.3mg/dL (undiagnosed) who presented ot hospital with lethargy and fatigue. He was found to have acute blood loss anemia requiring 2u PRBC. He was noted to have a severe stage KEVIN with Cr peak 3.03mg/dL in this setting. 1. 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 KEVIN improving with transfusion which improved perfusion. Now concern for symptomatic valvulopathy and overload. Plan: - planning GI work up for anemia - continue with lasix given symptomatic valvulopathy after transfusion - monitor renal function as we diurese - appreciate Cardiology recs - c/w IMdur Replace K (3) Acute blood loss anemia: Status: Acute Time Spent With Patient Time: Total time spent is greater than 50% in coordination of care (as documented) at patient's floor/unit and/or counseling patient: Time with patient: 15 - 24 minutes Progress Note: Quality Stroke Does the patient have a stroke diagnosis?: No
[2020-10-31 11:40] VITALS: BP 182/81; PULSE 84; RESP 18; TEMP 36.5; O2SAT 96
--- NOTE | 2020-10-31 12:08 | MHC.CM.PN ---
Patient is not yet medically cleared for dc but apparently he is very eager to go home. IV Lasix appears to be dc'd and IV Protonix still ordered. Home/resume VNA is the goal for dc and CM will continue to follow for possible need to adjust the dc plan.
--- NOTE | 2020-10-31 13:39 | P.DS_ITS ---
DS: Providers Provider Date of Service: 10/31/20 Date of admission: 10/28/20 14:59 Primary care physician: Charanjit Aguirre MD Consults: 10/28/20 15:04 Consult to Gastroenterology Routine Consulting Provider: Rakesh Colon Reason for consultation: Symptomatic anemia, GIB Consult to Nephrology Routine Consulting Provider: Benjamin Obando Reason for consultation: KEVIN for your kind eval 10/28/20 17:23 Consult to Cardiology Routine Consulting Provider: [place] Reason for consultation: preop eval Has provider been notified: No DS: Diagnosis Discharge Diagnosis (1) Symptomatic anemia: Status: Acute (2) Acute kidney injury: Status: Acute (3) Acute blood loss anemia: Status: Acute (4) Decompensated heart failure: Status: Acute (5) Anasarca: Status: Acute (6) Symptomatic anemia: Status: Acute (7) Current use of anticoagulant therapy: Status: Acute DS: Medications Discharge Medications Home Medications: Home Medications Medication Instructions Recorded Confirmed acetaminophen 500 mg tablet 500 mg PO Q8H PRN 10/28/20 10/28/20 fentanyl 50 mcg/hr transdermal 1 patch TOPICAL Q3D 10/28/20 10/28/20 patch oxycodone 5 mg tablet 5 mg PO Q4H PRN 10/28/20 10/28/20 pregabalin 25 mg capsule 1 cap PO TID 10/28/20 10/28/20 tamsulosin 0.4 mg capsule 1 cap PO BEDTIME 10/28/20 10/28/20 Previous Rx's Medication Instructions Recorded isosorbide mononitrate 30 mg 30 mg PO DAILY 90 Days #90 tab 03/03/20 tablet,extended release 24 hr metoprolol succinate 25 mg 25 mg PO DAILY #90 tab 05/30/20 tablet,extended release 24 hr torsemide 20 mg tablet 60 mg PO BID 90 Days #540 tab 07/20/20 digoxin 125 mcg (0.125 mg) tablet 125 mcg PO QTUTHSA #0 tab 10/31/20 DS: Summary Hospital Course Hospital Course: Admission note HPI A 80 years old male with PMH of AFib on warfarin, CHF, tricuspid regurg, CAD among others who presented to the hospital with a complaint of 4 days increased lethargy and dyspnea on exertion. The patient reported he had hip surgery 3 weeks ago and he recovered pretty well at home but noticed increase in his bilateral lower extremity swelling and weight gain.? His CHF medications were adjusted with increase the dose of torsemide and adding metolazone daily basis.? The patient reports losing some weight but he noticed decreased urine output afterward and for the last 2 days he did not pass almost any urine. He reports taking his warfarin as prescribed and never noticing any bleeding per rectum.? He mention that he had similar episode 3 times before and had upper and lower endoscopies with no clear ulcers or source of bleeding identified. In the emergency his hemoglobin was found to be around 6 from baseline of 12 along with acute kidney injury with creatinine of 3 from normal baseline. Images negative for any acute finding or obstruction Admitted for further evaluation and treatment. Hospital course The patient was admitted to the hospital for evaluation of symptomatic anemia as hemoglobin was found to be around 6. Received 2 units in the emergency. INR was 2.5 so received vitamin K to suppressed bleeding along with 2 units of fresh frozen plasma. Evaluated by Gastroenterology who recommended endoscopy to be done but was held for his fluid overload and right-sided heart failure. Treated with IV Lasix with fair response as he was evaluated by Cardiology team who recommended to hold with any procedures until his volume status improves. The patient became upset about the plan and asked to be discharged home and to do the endoscopy as outpatient after receiving 1/3 unit of blood and maintaining his blood level above 9. Dr. Colon agreed to that plan by doing endoscopy as outpatient. Warfarin will be discontinued for the time being per Cardiology. He was also noted to have acute kidney injury with creatinine of 3 and hyponatremia with low potassium level. Treated with IV fluids and holding nephrotoxic medications with adding potassium supplement with fair response his kidney improved back to 1.5 and his potassium above 3. Patient will be discharged home with some changes on his home medications. To hold warfarin for the time being and change digoxin to 3 times a week. to continue torsemide 60 mg b.i.d. Time Spent with Patient Time attestation: Total time spent providing and/or coordinating discharge ser vices: Discharge coordination time: Greater than 30 minutes Quality: Stroke Does the patient have a stroke diagnosis?: No Physical Exam Vital Signs: Vital Signs: Last Vital Signs Temp 97.7 F 10/31/20 11:40 Pulse 84 10/31/20 11:40 Resp 18 10/31/20 11:40 BP 182/81 H 10/31/20 11:40 Pulse Ox 96 10/31/20 11:40 Body Mass Index 30.3 Const: Other: Constitutional : Alert, oriented, not in distress Neck : Normal inspection, Supple Cardiovascular : Irregular irregular, S1 S2, systolic murmur, +2 bilateral lower extremity edema Respiratory : Fair bilateral air entry, no crackles, wheezes or rhonchi Gastrointestinal: soft, lax, Normal bowel sounds, Non tender Skin : Warm, Dry Neurological : Alert & oriented x3, No focal deficit DS: Data Data Completed and Pending Labs on day of discharge: Laboratory Results - last 24 hr 10/30/20 10/31/20 10/31/20 06:18 06:03 06:03 WBC 7.1 RBC 3.48 L Hgb 9.3 L Hct 29.7 L MCV 85.3 MCH 26.7 L MCHC 31.3 RDW 16.3 H Plt Count 236 MPV 11.0 Absolute Nucleated RBC 0.000 Nucleated RBC % (auto) 0.0 Sodium 138 Potassium 3.0 L Chloride 92 L Carbon Dioxide 32 H Anion Gap 17 BUN 60 H Creatinine 1.38 Estim Creat Clear Calc 54.3 Estimated GFR 50 Random Glucose 145 H Calcium 9.2 B-Natriuretic Peptide Vitamin B12 1208 H 10/31/20 06:03 WBC RBC Hgb Hct MCV MCH MCHC RDW Plt Count MPV Absolute Nucleated RBC Nucleated RBC % (auto) Sodium Potassium Chloride Carbon Dioxide Anion Gap BUN Creatinine Estim Creat Clear Calc Estimated GFR Random Glucose Calcium B-Natriuretic Peptide Cancelled Vitamin B12 Discharge Plan Discharge Patient Disposition: Home Health Service Discharge Diagnosis: GI bleed Symptomatic anemia Acute kidney injury Hypokalemia Referrals: [facility] [Outside] - 1 Week Charanjit Aguirre MD [Primary Care Provider] - 1 Week Discharge Medications: New potassium chloride 40 mEq/15 mL liquid 40 meq PO DAILY 30 Days Qty: 450 RF: 0 Continued isosorbide mononitrate 30 mg tablet extended release 24 hr 30 mg PO DAILY 90 Days Qty: 90 RF: 3 metoprolol succinate 25 mg tablet extended release 24 hr 25 mg PO DAILY Qty: 90 RF: 3 torsemide 20 mg tablet 60 mg PO BID 90 Days Qty: 540 RF: 1 fentanyl 50 mcg/hr patch 72 hour 1 patch topical Q3D RF: 0 tamsulosin 0.4 mg capsule 1 cap PO BEDTIME RF: 0 oxycodone 5 mg tablet 5 mg PO Q4H PRN (Reason: Pain) RF: 0 pregabalin 25 mg capsule 1 cap PO TID RF: 0 acetaminophen 500 mg tablet 500 mg PO Q8H PRN (Reason: Pain) RF: 0 Changed digoxin 125 mcg (0.125 mg) tablet 125 mcg PO QTUTHSA Qty: 0 RF: 0 Discontinued cephalexin 500 mg capsule 1 cap PO Q8H RF: 0 warfarin 1 mg tablet 1 tab PO DAILY RF: 0 warfarin 5 mg tablet 5 mg PO DAILY Qty: 90 RF: 0 metolazone 2.5 mg tablet 2.5 mg PO Q OTHER DAY PRN (Reason: For weight gain) Qty: 20 RF: 2 Discharge Orders: Discharge Order (Routine); Ordered 10/31/20 Ordered By: Trell Dao Diet: advance to usual diet and low salt diet Activity on Discharge: As tolerated Stand Alone Forms: Patient Portal Discharge page Other Ambulatory Orders: Basic Metabolic Panel (Routine) Timeframe: 1 Week Facility: [facility] - Location: Laboratory Ordered By: Trell Dao B Type Natriuretic Peptide (Routine) Timeframe: 1 Week Facility: [facility] - Location: Laboratory Ordered By: Trell Dao Complete Blood Count no Diff (Routine) Timeframe: 1 Week Facility: [facility] - Location: Laboratory Ordered By: Trell Dao Care Plan Goals: Read below Health Concerns: Read below Plan of Treatment: You were admitted to the hospital for evaluation of swelling in shortness of breath and lower extremities. Found to have kidney injury and low level of potassium along with significant anemia. treated with blood transfusion with good response. Your kidney function improved during the hospital stay as well as your potassium levels. You were evaluated by cardiology and gastroenterology who recommended doing Endoscopy but you prefer to do it as outpatient. Assessment: You will be contacted by the [employer] regarding the date of EGD Stop Warfarin and Metolazone Digoxin dose changed to three times a week To follow up with dr Aguirer and Isaiah as outpatient for further eval and treatment. Will repeat blood test next week Discharge Date/Time: 10/31/20 15:30
[2020-10-31] MEDS: Furosemide 100 MG/10 ML VIAL IVPUSH (14:21)
--- NOTE | 2020-10-31 14:41 | MHC.CM.PN ---
Patient will be medically cleared for dc to home today with services. Patient was active with [employer] [facility] [place], who has been notified of today's dc.Last IMM addressed on 10/29/20.
== END 2020-10-31 15:30 | disposition home health service (06) | DRG 291 ==
LOC: HO.ED 15:12 → HO.EDOVER 15:24 → HO.IMC 15:24
PROVIDERS: Internal Medicine Gastroenterology; Physician Assistant; Admitting Provider Student in an Organized Health Care Education/Training Program; Emergency Provider Emergency Medicine; PCP Internal Medicine Cardiovascular Disease; Visit Provider Student in an Organized Health Care Education/Training Program
DX: I50.813 Acute on chronic right heart failure (principal); N17.0 Acute kidney failure with tubular necrosis; I48.20 Chronic atrial fibrillation, unspecified; D62 Acute posthemorrhagic anemia; K92.2 Gastrointestinal hemorrhage, unspecified; N18.31 Chronic kidney disease, stage 3a; I07.1 Rheumatic tricuspid insufficiency; Z87.891 Personal history of nicotine dependence; Z79.01 Long term (current) use of anticoagulants; I25.10 Atherosclerotic heart disease of native coronary artery without angina pectoris; Z79.891 Long term (current) use of opiate analgesic; Z79.899 Other long term (current) drug therapy
CPT/HCPCS: 36415; 36430; 71045; 74176; 80048; 80053; 81003; 82248; 82272; 82607; 82728; 83540; 83735; 83880; 84300; 84484; 85025; 85027; 85610; 85730; 86850; 86900; 86901; 86923; 87635; 89190; 93005; 93970; 96365; 96367; 96375; 99285; J1940; J2270; J3430; P9016; P9017

== ENCOUNTER → 2020-11-15 13:00 | Outpatient (BNVA) | payer MEDICARE, SELFPAY | PROVIDERS: PCP Internal Medicine; Referring Provider Internal Medicine; Visit Provider Internal Medicine Cardiovascular Disease | DX: I50.9 Heart failure, unspecified (principal); I48.20 Chronic atrial fibrillation, unspecified; I25.10 Atherosclerotic heart disease of native coronary artery without angina pectoris | CPT/HCPCS: 99212 ==

== ENCOUNTER 2020-11-16 09:42 | Outpatient (REF) | payer MEDICARE, SELFPAY ==
[2020-11-16 10:49] LABS: Hematocrit 30.1 % (42-52); Hemoglobin 9.1 g/dl (14.0-18.0); Mean Corpuscular HGB Conc 30.2 g/dl (31.0-36.0); Mean Corpuscular Hemoglobin 25.1 pg (27.0-33.0); Mean Corpuscular Volume 83.1 fL (80-98); Platelet Count 225 X10*3/uL (160-400); Red Blood Count 3.62 X10*6/uL (4.60-5.80); Red Cell Distribution Width 16.3 % (11.0-16.0); White Blood Count 7.3 X10*3/uL (4.8-10.8)
[2020-11-16 11:09] LABS: B Type Natriuretic Peptide 86 pg/mL (<100)
[2020-11-16 11:17] LABS: Blood Urea Nitrogen 35 mg/dL (9-16); Calcium 9.5 mg/dL (8.4-10.2); Estimated Glomerular Filt Rate 49; Glucose Random 213 mg/dL (60-115); Magnesium 2.4 mg/dL (1.6-2.6)
[2020-11-16 11:28] LABS: Anion Gap 14 (12-20); Carbon Dioxide 34 mmol/L (22-29); Chloride 97 mmol/L (96-108); Potassium 2.8 mmol/L (3.3-5.1); Sodium 142 mmol/L (135-145)
[2020-11-16 12:01] LABS: Digoxin < 0.3 ng/mL (0.8-2.0)
== END 2020-11-16 09:43 | disposition home or self-care (01) ==
LOC: HO.LAB 09:42
PROVIDERS: PCP Internal Medicine; Visit Provider Internal Medicine Cardiovascular Disease
DX: I48.20 Chronic atrial fibrillation, unspecified (principal); I50.30 Unspecified diastolic (congestive) heart failure
CPT/HCPCS: 36415; 80048; 80162; 83735; 83880; 85027

== ENCOUNTER → 2020-12-15 09:43 | Outpatient (BNVA) | payer MEDICARE, SELFPAY | PROVIDERS: PCP Internal Medicine; Referring Provider Internal Medicine; Visit Provider Internal Medicine Gastroenterology | DX: Z13.89 Encounter for screening for other disorder (principal) | CPT/HCPCS: 99212 ==

== ENCOUNTER → 2021-03-24 10:42 | Outpatient (BNVA) | payer MEDICARE, SELFPAY | PROVIDERS: PCP Internal Medicine; Referring Provider Internal Medicine; Visit Provider Internal Medicine Cardiovascular Disease | DX: I50.9 Heart failure, unspecified (principal); I25.10 Atherosclerotic heart disease of native coronary artery without angina pectoris; I48.20 Chronic atrial fibrillation, unspecified | CPT/HCPCS: 99212 ==

== ENCOUNTER → 2021-05-03 09:46 | Outpatient (BNVA) | payer MEDICARE, SELFPAY | PROVIDERS: PCP Internal Medicine; Referring Provider Internal Medicine; Visit Provider Internal Medicine Cardiovascular Disease | DX: R63.5 Abnormal weight gain (principal); R79.89 Other specified abnormal findings of blood chemistry; I50.813 Acute on chronic right heart failure; I48.20 Chronic atrial fibrillation, unspecified; I25.10 Atherosclerotic heart disease of native coronary artery without angina pectoris; I71.2 Thoracic aortic aneurysm, without rupture; I07.1 Rheumatic tricuspid insufficiency; Z87.891 Personal history of nicotine dependence; Z98.890 Other specified postprocedural states; Z95.1 Presence of aortocoronary bypass graft; Z88.8 Allergy status to other drugs, medicaments and biological substances; Z79.4 Long term (current) use of insulin; Z79.01 Long term (current) use of anticoagulants; Z79.891 Long term (current) use of opiate analgesic; Z79.899 Other long term (current) drug therapy | CPT/HCPCS: 99212 ==

== ENCOUNTER → 2021-06-28 08:59 | Outpatient (BNVA) | payer MEDICARE, SELFPAY | PROVIDERS: PCP Internal Medicine; Referring Provider Internal Medicine; Visit Provider Internal Medicine Cardiovascular Disease | DX: I50.9 Heart failure, unspecified (principal); I48.20 Chronic atrial fibrillation, unspecified; I25.10 Atherosclerotic heart disease of native coronary artery without angina pectoris; I07.1 Rheumatic tricuspid insufficiency; Z79.01 Long term (current) use of anticoagulants; Z79.899 Other long term (current) drug therapy | CPT/HCPCS: 99212 ==